=== PATIENT | male | born 1950 | race Two or more races ===

== ENCOUNTER 2016-08-15 13:04 | Observation (INO) | payer SELFPAY ==
[~2016-08-15] VITALS: Ht 177.8 cm; Wt 84.0 kg
[2016-08-15] MEDS ORDERED: fentaNYL PF VIAL 100 MCG/2 ML VIAL IV PRN ×2 (13:30→14:00)
[2016-08-15] MEDS ORDERED: 0.9 % SODIUM CHLORIDE 10 ML DISP.SYRIN. IV PRN (13:30)
[2016-08-15] MEDS ORDERED: IV NORMAL SALINE 1000ML BAG 1,000 ML IV SCH (13:30)
[2016-08-15 13:47] LABS: BASO # 0.1 x10^3/uL (0.0-0.2); BASO % 2 % (0-3); EOS % 1 % (0-3); HEMATOCRIT 44.6 % (39.0-53.0); HEMOGLOBIN 15.5 g/dL (13.0-17.5); LYMPH # 0.5 x10^3/uL (1.0-4.8); LYMPH % 11 % (24-48); MEAN CORPUSCULAR HEMOGLOBIN 32 pg (25-35); MEAN CORPUSCULAR HGB CONC 35 g/dL (31-37); MEAN CORPUSCULAR VOLUME 91 fL (79-100); MONO % 6 % (0-9); NEUT % 80 % (31-73); PLATELET COUNT 164 x10^3/uL (140-400); RED BLOOD COUNT 4.93 x10^6/uL (4.30-5.70); RED CELL DISTRIBUTION WIDTH 13.3 % (11.5-14.5); WHITE BLOOD COUNT 4.3 x10^3/uL (4.0-11.0)
--- NOTE | 2016-08-15 13:47 | PHYS DOC ---
Past Medical History Past Medical History: CVA, GERD, High Cholesterol, Hypertension Additional Past Medical Histor: headaches Past Surgical History: Other Additional Past Surgical Histo: HEAD SX DUE TO A BLEED, hernia Alcohol Use: None Drug Use: None Adult General Chief Complaint Chief Complaint: DIZZY/LIGHT HEADED HPI HPI Patient is a pleasant 66-year-old male with history of hypertension hyperlipidemia reflux who presents with intermittent chest pain dizziness and nausea that shortness of breath for last 3 days. Symptoms began 3 days ago with intermittent chest pain experienced over the left breast with radiation to the back describes as pressure and sharp and stabbing and changed with swallowing water. He had one episode on Sunday it went away with after eating vessels. He again had a little earlier episode just prior to arrival today that made him lightheaded and dizzy. He did not feel short of breath with the symptoms. He was nauseated without vomiting or diarrhea did not have any abdominal pain is focal neurologic deficits weakness in his upper and lower extremities do not have any change in vision. Patient denies any trauma patient denies any recent travel outside the country or anti microbial use he has not had symptoms like this in the past. He felt as all dietary related given the fact that he felt better after eating vegetables and drinking water. Family is concerned that this is a heart issue. Review of Systems Review of Systems Constitutional: Denies fever or chills [] Eyes: Denies change in visual acuity, redness, or eye pain [] HENT: Denies nasal congestion or sore throat [] Respiratory: Denies cough or shortness of breath [] Cardiovascular: No additional information not addressed in HPI [] GI: Denies abdominal pain, but has had some nausea without vomiting or diarrhea : Denies dysuria or hematuria [] Musculoskeletal: Denies back pain or joint pain [] Integument: Denies rash or skin lesions [] Neurologic: Patient has been dizzy with no focal neurologic weakness. Endocrine: Denies polyuria or polydipsia [] Current Medications Current Medications Current Medications Medications (Trade) Dose Ordered Sig/Luci Start Time Stop Time Status Last Admin Dose Admin Acetaminophen (Tylenol) 650 mg PRN Q4HRS PRN 08/15/16 14:00 08/16/16 13:59 Fentanyl Citrate (Fentanyl 2ml Vial) 50 mcg PRN Q1HR PRN 08/15/16 14:00 08/16/16 13:59 Fentanyl Citrate 50 mcg 50 mcg PRN Q15MIN PRN 08/15/16 13:30 08/16/16 13:29 08/15/16 13:43 50 MCG Ondansetron HCl (Zofran) 4 mg PRN Q8HRS PRN 08/15/16 14:00 08/16/16 13:59 Sodium Chloride (Iv Sodium Chloride 0.9% 1000ml Bag) 1,000 ml @ 1,000 mls/hr Q1H 08/15/16 13:30 08/15/16 14:29 DC 08/15/16 13:44 1,000 MLS/HR Sodium Chloride (Normal Saline Flush) 10 ml QSHIFT PRN 08/15/16 13:30 08/15/16 13:46 10 ML Allergies Allergies Allergies Coded Allergies Type Severity Reaction Last Updated Verified No Known Allergies Allergy Unknown 09/20/15 Yes Physical Exam Physical Exam Constitutional: Well developed, well nourished, no acute distress, non-toxic appearance. [] HENT: Normocephalic, atraumatic, bilateral external ears normal, oropharynx moist, no oral exudates, nose normal. [] Eyes: PERRLA, EOMI, conjunctiva normal, no discharge. [] Neck: Normal range of motion, no tenderness, supple, no stridor. [] Cardiovascular:Heart rate regular rhythm, no murmur [] Lungs & Thorax: Bilateral breath sounds clear to auscultation [] Abdomen: Bowel sounds normal, soft, no tenderness, no masses, no pulsatile masses. [] Skin: Warm, dry, no erythema, no rash. [] Back: No tenderness, no CVA tenderness. [] Extremities: No tenderness, no cyanosis, no clubbing, ROM intact, no edema. [] Neurologic: Alert and oriented X 3, normal motor function, normal sensory function, no focal deficits noted. [] Psychologic: Affect normal, judgement normal, mood normal. [] Current Patient Data Vital Signs Vital Signs Date Time Temp Pulse Resp B/P Pulse Ox O2 Delivery O2 Flow Rate FiO2 08/15/16 14:01 87 18 137/81 99 08/15/16 13:20 98.1 Room Air 98.1 Lab Values Laboratory Tests Test 08/15/16 13:30 White Blood Count 4.3x10^3/uL (4.0-11.0) Red Blood Count 4.93x10^6/uL (4.30-5.70) Hemoglobin 15.5g/dL (13.0-17.5) Hematocrit 44.6% (39.0-53.0) Mean Corpuscular Volume 91fL (79-100) Mean Corpuscular Hemoglobin 32pg (25-35) Mean Corpuscular Hemoglobin Concent 35g/dL (31-37) Red Cell Distribution Width 13.3% (11.5-14.5) Platelet Count 164x10^3/uL (140-400) Neutrophils (%) (Auto) 80% (31-73) H Lymphocytes (%) (Auto) 11% (24-48) L Monocytes (%) (Auto) 6% (0-9) Eosinophils (%) (Auto) 1% (0-3) Basophils (%) (Auto) 2% (0-3) Neutrophils # (Auto) 3.5x10^3uL (1.8-7.7) Lymphocytes # (Auto) 0.5x10^3/uL (1.0-4.8) L Monocytes # (Auto) 0.2x10^3/uL (0.0-1.1) Eosinophils # (Auto) 0.0x10^3/uL (0.0-0.7) Basophils # (Auto) 0.1x10^3/uL (0.0-0.2) D-Dimer (Taylor) 0.81ug/mlFEU (0.00-0.50) H Sodium Level 136mmol/L (136-145) Potassium Level 4.3mmol/L (3.5-5.1) Chloride Level 104mmol/L (98-107) Carbon Dioxide Level 27mmol/L (21-32) Anion Gap 5 (6-14) L Blood Urea Nitrogen 14mg/dL (8-26) Creatinine 0.8mg/dL (0.7-1.3) Estimated GFR (Cockcroft-Gault) 96.1 Glucose Level 147mg/dL (70-99) H Calcium Level 8.8mg/dL (8.5-10.1) Magnesium Level 2.1mg/dL (1.8-2.4) Creatine Kinase 151U/L (39-308) Creatine Kinase MB (Mass) 1.7ng/mL (0.0-3.6) Creatine Kinase MB Relative Index 1.1% (0-4) Troponin I Quantitative < 0.017ng/mL (0.000-0.055) SM-Iwc-H-Type Natriuretic Peptide 49pg/mL (0-124) Lipase 136U/L (73-393) Thyroid Stimulating Hormone (TSH) 4.609uIU/mL (0.358-3.74) H Laboratory Tests 08/15/16 13:30 Laboratory Tests 08/15/16 13:30 EKG EKG [EKG timed 1319 p.m. 5 05/18/16 heart rate of 75 [place] interval normal at 146 no QRS or T-wave changes as his elevation consistent with acute coronary event. There is a Q-wave located in lead 3 but is not pathologic as it is only occurring in the one lead.] Radiology/Procedures Radiology/Procedures [Chest x-ray read by me demonstrates no significant widened mediastinum no pericardial effusion no large cardiac silhouette or thick focal infiltrate. Lungs are otherwise well-expanded no evidence of pleural effusion.] Course & Med Decision Making Course & Med Decision Making Pertinent Labs and Imaging studies reviewed. (See chart for details) [I'm concerned with the patient's presentation of chest pain with dizziness she' s never had before beginning 3 days ago given his age and prior history of hypertension hyperlipidemia his heart score risk is greater than 4. Which means his outpatient likelihood for acute coronary event is greater than 5%. Given his lack of evaluation from a prior supervisor contact and service clerks I would advise admission to the hospital and close follow-up. Differential diagnosis includes but not limited to pulmonary asthma, pleural effusion, pneumonia, pericarditis, acute coronary syndrome, mediastinum is, esophagitis, reflux, and] Paged internal medicine for hospitalist evaluation and admission to the hospital at 1:46 PM. He should continue to have episodes of nausea requiring repeated doses Zofran and fluids. By the end he was feeling markedly better reported troponin and EKG unremarkable as well as chest x-ray. Dragon Disclaimer Dragon Disclaimer This electronic medical record was generated, in whole or in part, using a voice recognition dictation system. Departure Departure Impression: Primary Impression: Chest pain Additional Impression: Nausea & vomiting Disposition: 02 TRANSFER [facility] Admitting Physician: Pravin Mckinney Condition: IMPROVED Referrals: [facility] (PCP) Problem Qualifiers DIANA JAQUEZ MD August 15, 2016 13:47
[2016-08-15] MEDS ORDERED: PRAV40TA2 PO (13:48)
[2016-08-15] MEDS ORDERED: CYCL10TA2 PO (13:49)
[2016-08-15] MEDS ORDERED: TRAM50TA PO (13:51)
[2016-08-15] MEDS ORDERED: TERA2CAP3 PO (13:52)
[2016-08-15] MEDS ORDERED: FAMO20TA5 PO (13:52)
[2016-08-15] MEDS ORDERED: AMLO10TA2 PO (13:53)
[2016-08-15] MEDS ORDERED: METO50TA2 PO (13:54)
[2016-08-15] MEDS ORDERED: ONDANSETRON PF 4 MG/2 ML VIAL. IV ONE (14:00)
[2016-08-15] MEDS ORDERED: ACETAMINOPHEN 325 MG TABLET. PO PRN ×2 (14:00→18:45)
[2016-08-15] MEDS ORDERED: ONDANSETRON PF 4 MG/2 ML VIAL. IV PRN ×2 (14:00→18:45)
--- NOTE | 2016-08-15 14:05 | EKG ---
[facility] [address] [place] [address] Test Date: 2016-08-15 Test Time: 13:19:07 Pat Name: ARLEY ERICKSON Department: Room: Gender: M Materials Management Clerk: : 1950 Requested By: DIANA JAQUEZ Order Number: [id number] Reading MD: Tameka Sagastume Measurements Intervals [place] Rate: 75 P: 31 ND: 146 QRS: 3 QRSD: 78 T: 16 QT: 368 QTc: 413 Interpretive Statements SINUS RHYTHM LEFT ATRIAL ABNORMALITY RI6.01 Unconfirmed report No previous ECG available for comparison Electronically Signed On 08-16-2016 20:40:36 CDT by Tameka Sagastume
[2016-08-15 14:09] LABS: MAGNESIUM 2.1 mg/dL (1.8-2.4)
--- NOTE | 2016-08-15 14:11 | RAD ---
Indication chest pain. A single view of the chest was obtained. Comparison is made to an examination 01/18/2008. There is cardiomegaly similar to the previous exam. There is no congestive heart failure. There is no focal infiltrate significant pleural fluid collection or pneumothorax. The bony structures appear grossly intact. A significant change compared to the previous exam is not seen. IMPRESSION: No acute finding. No significant change
[2016-08-15 14:19] LABS: CKMB MASS 1.7 ng/mL (0.0-3.6)
--- NOTE | 2016-08-15 15:50 | PDOC2 ---
MIYA RUCKER [facility] 08/15/16 1549: CARDIAC CONSULT DATE OF CONSULT Date of Consult DATE: 08/15/16 TIME: 15:39 REASON FOR CONSULT Reason for Consult: Chest pain REFERRING PHYSICIAN Referring Physician: Brittny SOURCE Source: Chart review, Patient HISTORY OF PRESENT ILLNESS HISTORY OF PRESENT ILLNESS This is a pleasant 66 yo male admitted for complains of chest pain, and dizziness. Reports that he was working Sunday when he started having symptoms. 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 He was nauseated but no SOA. He started having left chest pressure that went to his back. He also described it got a little better after drinking cold water. In addition to this he also was complaining od dizziness at that time. He is not sure the duration of his symptoms but this did not recur again till again at work today. I talked to his daughter and she told me that he does not complain much. Denies any prior CAD, VTE, and no syncopal episodes. 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 He has HTN, HLP, and preDM. Denies use of ASA. Denies any frequent heartburn or routine NSAID use. Denies any recent long distance travels, leg pain, clotting disorders. Currently he denies any symptoms. PAST MEDICAL HISTORY Cardiovascular: HTN, Hyperlipidemia Pulmonary: No pertinent hx CENTRAL NERVOUS SYSTEM: CVA (ICH 9 yrs ago), Other (brain aneurysm) GI: GERD Heme/Onc: No pertinent hx Hepatobiliary: No pertinent hx Psych: No pertinent hx Musculoskeletal: Osteoarthritis Rheumatologic: No pertinent hx Infectious disease: No pertinent hx ENT: Other ([place]; tinnitus) Renal/: No pertinent hx Endocrine: Diabetes (PRE dm) Dermatology: No pertinent hx PAST SURGICAL HISTORY Past Surgical History: Hernia Repair (right inguinal), Other (craciotomy 9 yrs ago: unknown for brain clipping) FAMILY HISTORY Family History noncontributory to CV SOCIAL HISTORY Smoke: No (quit 9 yrs ago; >20 pk yr) ALCOHOL: occassional Drugs: None Lives: with Family CURRENT MEDICATIONS CURRENT MEDICATIONS Current Medications Medications (Trade) Dose Ordered Sig/Luci Route PRN Reason Start Time Stop Time Status Last Admin Dose Admin Fentanyl Citrate 50 mcg 50 mcg PRN Q15MIN PRN IV PAIN GREATER THAN 3/10 08/15/16 13:30 08/16/16 13:29 5/2/17 13:43 Sodium Chloride (Iv Sodium Chloride 0.9% 1000ml Bag) 1,000 ml @ 1,000 mls/hr Q1H IV 08/15/16 13:30 08/15/16 14:29 DC 08/15/16 13:44 Sodium Chloride (Normal Saline Flush) 10 ml QSHIFT PRN IV AFTER MEDS AND BLOOD DRAWS 08/15/16 13:30 08/15/16 13:46 Ondansetron HCl (Zofran) 4 mg 1X ONCE IV 08/15/16 14:00 08/15/16 14:01 DC 08/15/16 14:00 ALLERGIES ALLERGIES: Coded Allergies: No Known Allergies (Verified Allergy, Unknown, 09/20/15) ROS Review of System 14 point ROS evaluated with pertinent positives noted per HPI PHYSICAL EXAM General: Alert, Oriented X3, Cooperative, No acute distress HEENT: Atraumatic, Mucous membr. moist/pink Lungs: Clear to auscultation, Normal air movement Heart: Regular rate (SR), Normal S1, Normal S2 Abdomen: Soft, No tenderness Extremities: No cyanosis, No edema Skin: No breakdown, No significant lesion Neuro: Normal speech, Sensation intact Psych/Mental Status: Mental status NL, Mood NL MUSCULOSKELETAL: Osteoarthritic changes both hands VITALS VITALS Vital Signs Date Time Temp Pulse Resp B/P Pulse Ox O2 Delivery O2 Flow Rate FiO2 08/15/16 14:01 87 18 137/81 99 08/15/16 13:20 98.1 Room Air 98.1 LABS Lab: Laboratory Tests Test 08/15/16 13:30 White Blood Count 4.3x10^3/uL (4.0-11.0) Red Blood Count 4.93x10^6/uL (4.30-5.70) Hemoglobin 15.5g/dL (13.0-17.5) Hematocrit 44.6% (39.0-53.0) Mean Corpuscular Volume 91fL (79-100) Mean Corpuscular Hemoglobin 32pg (25-35) Mean Corpuscular Hemoglobin Concent 35g/dL (31-37) Red Cell Distribution Width 13.3% (11.5-14.5) Platelet Count 164x10^3/uL (140-400) Neutrophils (%) (Auto) 80% (31-73) Lymphocytes (%) (Auto) 11% (24-48) Monocytes (%) (Auto) 6% (0-9) Eosinophils (%) (Auto) 1% (0-3) Basophils (%) (Auto) 2% (0-3) Neutrophils # (Auto) 3.5x10^3uL (1.8-7.7) Lymphocytes # (Auto) 0.5x10^3/uL (1.0-4.8) Monocytes # (Auto) 0.2x10^3/uL (0.0-1.1) Eosinophils # (Auto) 0.0x10^3/uL (0.0-0.7) Basophils # (Auto) 0.1x10^3/uL (0.0-0.2) D-Dimer (Taylor) 0.81ug/mlFEU (0.00-0.50) Sodium Level 136mmol/L (136-145) Potassium Level 4.3mmol/L (3.5-5.1) Chloride Level 104mmol/L (98-107) Carbon Dioxide Level 27mmol/L (21-32) Anion Gap 5 (6-14) Blood Urea Nitrogen 14mg/dL (8-26) Creatinine 0.8mg/dL (0.7-1.3) Estimated GFR (Cockcroft-Gault) 96.1 Glucose Level 147mg/dL (70-99) Calcium Level 8.8mg/dL (8.5-10.1) Magnesium Level 2.1mg/dL (1.8-2.4) Creatine Kinase 151U/L (39-308) Creatine Kinase MB (Mass) 1.7ng/mL (0.0-3.6) Creatine Kinase MB Relative Index 1.1% (0-4) Troponin I Quantitative < 0.017ng/mL (0.000-0.055) NF-Tsx-S-Type Natriuretic Peptide 49pg/mL (0-124) Lipase 136U/L (73-393) Thyroid Stimulating Hormone (TSH) 4.609uIU/mL (0.358-3.74) ASSESSMENT/PLAN ASSESSMENT/PLAN 1. Chest pain: initial trop normal. EKG SR with very subtle ST depression V4- V6 but with upward deflection otherwise no acute changes. 2. HTN: controlled 3. HLP 4. Subclinical hypothyroidism: TSH 4.6. per PCP 5. DDIMER: 0.81. PE/DVT clinical probability low. Defer to PCP. 6. PreDM 7. Hx of CVA/ICH/brain aneurysm with craniotomy: 9 yrs ago 8. Hx of remote tobaccoism: >20-40 pk yr quit 9 yrs ago 9. GERD: on home H2 ken Recommendations 1. Trend troponin, CMP, lipids in am, A1C. 2. TTE, plan for MPI tomorrow unless significant changes on trop and symptomatology. 3. PPI. 4. COntinue with ASA, home statin and BP meds. Problems: LORENZO EPSTEIN MD 08/16/16 0901: CARDIAC CONSULT ALLERGIES ALLERGIES: Coded Allergies: No Known Allergies (Verified Allergy, Unknown, 09/20/15) ASSESSMENT/PLAN ASSESSMENT/PLAN Patient seen and examined 08/15/16. Agree with HIGH SCHOOL ASSISTANT PRINCIPAL's assessment and plan. Chest pain with atypical features. Myocardial infarction ruled out. 2-D echo showed normal LV function without any wall motion abnormalities. Plan for Lexiscan nuclear stress test to rule out ischemia. Thank you for the consultation. Problems: MIYA RUCKER APRN August 15, 2016 15:49 LORENZO EPSTEIN MD August 16, 2016 09:01
[2016-08-15 16:02] VITALS: BP 146/83
[2016-08-15 16:26] LABS: ALBUMIN 3.9 g/dL (3.4-5.0); CALCIUM 8.7 mg/dL (8.5-10.1); CREATININE 0.8 mg/dL (0.7-1.3); GFR 96.1; POTASSIUM 4.5 mmol/L (3.5-5.1); TOTAL BILIRUBIN 0.5 mg/dL (0.2-1.0); TOTAL PROTEIN 7.7 g/dL (6.4-8.2)
--- NOTE | 2016-08-15 17:07 | CARD ---
APPROVED REPORT EXAM: Two-dimensional and M-mode echocardiogram with Doppler and color Doppler. Other Information Quality : Average Rhythm : NSR INDICATION Chest Pain 2D DIMENSIONS Left Atrium(2D)3.8 (1.6-4.0cm)IVSd1.0 (0.7-1.1cm) Aortic Root(2D)2.5 (2.0-3.7cm)LVDd5.2 (3.9-5.9cm) LVOT Diameter2.0 (1.8-2.4cm)PWd1.0 (0.7-1.1cm) LVDs3.7 (2.5-4.0cm)FS (%) 28.8 % SV72.8 mlLVEF(%)55.1 (>50%) Aortic Valve AoV Peak [place].134.4cm/sAoV VTI30.8cm AO Peak GR.7.2mmHgLVOT VTI 27.05cm AO Mean GR.4mmHg Mitral Valve MV E Zulochhx39.3cm/sMV E Peak Gr.3mmHg MV DECEL [id number] A Unrgctfv74.7cm/s MV E Mean Gr.2mmHgMV XAN29mp E/A Ratio1.0MV A Kdfsfocb950vz MVA (PHT)4.23cm2 TDI Lateral E' P. V10.16cm/sMedial E' P. V10.36cm/s E/Lateral E'8.1E/Medial E'7.9 Tricuspid Valve TR P. [id number]/sRAP [id number] TR Peak Gr.10xmGlJNBP04xnDs LEFT VENTRICLE The left ventricle is normal size. There is normal left ventricular wall thickness. Left ventricle sy stolic function is normal. The Ejection Fraction is 55-60%. There is normal LV segmental wall motion. The left ventricular diastolic function and filling is normal for age. RIGHT VENTRICLE The right ventricle is normal size. The right ventricular systolic function is normal. ATRIA The left atrium size is normal. The right atrium size is normal. The interatrial septum is intact wit h no evidence for an atrial septal defect or patent foramen ovale as noted on 2-D or Doppler imaging. AORTIC VALVE The aortic valve is normal in structure and function. The aortic valve is trileaflet. Doppler and Col or Flow revealed no significant aortic regurgitation. There is no significant aortic valvular stenosi s. MITRAL VALVE The mitral valve is normal in structure and function. There is no mitral valve stenosis. Doppler and Color Flow revealed mild mitral regurgitation. TRICUSPID VALVE The tricuspid valve is normal in structure and function. Doppler and Color Flow revealed mild tricusp id regurgitation. The PA pressure was estimated at 36 mmHg. There is no tricuspid valve stenosis. PULMONIC VALVE The pulmonic valve is not well visualized. Doppler and Color Flow revealed no pulmonic valvular regur gitation. There is no pulmonic valvular stenosis. GREAT VESSELS The aortic root is normal in size. Pulmonary veins not recorded. The IVC is normal in size and collap ses >50% with inspiration. PERICARDIAL EFFUSION There is no evidence of significant pericardial effusion. Critical Notification Critical Value: No <Conclusion> There is normal LV segmental wall motion. Left ventricle systolic function is normal. The Ejection Fraction is 55-60%.
[2016-08-15] MEDS: amLODIPine BESYLATE 10 MG TABLET PO SCH (18:12)
[2016-08-15] MEDS: PANTOPRAZOLE 40 MG TABLET.DR. PO SCH (18:12)
--- NOTE | 2016-08-15 18:32 | PDOC1 ---
History and Physical Past Medical History Cardiovascular: HTN, Hyperlipidemia Pulmonary: No pertinent hx CENTRAL NERVOUS SYSTEM: CVA (ICH 9 yrs ago), Other (brain aneurysm) GI: GERD Heme/Onc: No pertinent hx Hepatobiliary: No pertinent hx Psych: No pertinent hx Rheumatologic: No pertinent hx Infectious disease: No pertinent hx ENT: Other (NAVAJO; tinnitus) Renal/: No pertinent hx Endocrine: Diabetes (PRE dm) Dermatology: No pertinent hx Past Surgical History Past Surgical History: Hernia Repair (right inguinal), Other (craciotomy 9 yrs ago: unknown for brain clipping) Social History Smoke: No (quit 9 yrs ago; >20 pk yr) ALCOHOL: occassional Drugs: None Current Problem List Problem List Problems Medical Problems: (1) Chest pain Status: Acute (2) Nausea & vomiting Status: Acute Current Medications Current Medications Current Medications Medications (Trade) Dose Ordered Sig/Luci Start Time Stop Time Status Last Admin Dose Admin Acetaminophen (Tylenol) 650 mg PRN Q4HRS PRN 08/15/16 14:00 08/16/16 13:59 Amlodipine Besylate (Norvasc) 10 mg DAILY 08/15/16 17:00 08/15/16 18:12 10 MG Aspirin (Ecotrin) 81 mg [id number] 08/16/16 08:00 Atorvastatin Calcium (Lipitor) 10 mg QHS 08/15/16 21:00 Fentanyl Citrate (Fentanyl 2ml Vial) 50 mcg PRN Q1HR PRN 08/15/16 14:00 08/16/16 13:59 Fentanyl Citrate 50 mcg 50 mcg PRN Q15MIN PRN 08/15/16 13:30 08/15/16 16:20 DC 08/15/16 13:43 50 MCG Metoprolol Tartrate (Lopressor) 50 mg BID 08/15/16 21:00 Ondansetron HCl (Zofran) 4 mg PRN Q8HRS PRN 08/15/16 14:00 08/16/16 13:59 Pantoprazole Sodium (Protonix) 40 mg DAILYAC 08/15/16 17:00 08/15/16 18:12 40 MG Sodium Chloride (Iv Sodium Chloride 0.9% 1000ml Bag) 1,000 ml @ 1,000 mls/hr Q1H 08/15/16 13:30 08/15/16 14:29 DC 08/15/16 13:44 1,000 MLS/HR Sodium Chloride (Normal Saline Flush) 10 ml QSHIFT PRN 08/15/16 13:30 08/15/16 13:46 10 ML Allergies Allergies Allergies Coded Allergies Type Severity Reaction Last Updated Verified No Known Allergies Allergy Unknown 09/20/15 Yes ROS Review of System CONSTITUTIONAL: No fever or chills EYES: No recent changes SKIN: No rash or itching CARDIOVASCULAR: Chest pain, Dizziness. RESPIRATORY: No SOB or cough GASTROINTESTINAL: No nausea, vomiting or abdominal pain NEUROLOGICAL: No headaches or weakness ENDOCRINE: No cold or heat intolerance GENITOURINARY: No urgency or frequency of urination MUSCULOSKELETAL: No back pain or joint pain LYMPHATICS: No enlarged lymph nodes PSYCHIATRIC: No anxiety or depression Physical Exam Physical Exam GEN.: No apparent distress. Alert and oriented. HEENT: Head is normocephalic, atraumatic NECK: Supple. no JVD LUNGS: Clear to auscultation. normal airflow HEART: RRR, S1, S2 present. Peripheral pulses intact ABDOMEN: Soft, nontender. Positive bowel sounds. EXTREMITIES: Without any cyanosis. no edema NEUROLOGIC: Normal speech, normal tone PSYCHIATRIC: Normal affect, normal mood. SKIN: dry, Vitals Vitals Vital Signs Date Time Temp Pulse Resp B/P Pulse Ox O2 Delivery O2 Flow Rate FiO2 08/15/16 18:12 74 146/83 08/15/16 16:02 97.5 18 93 Room Air 97.5 Labs Labs Laboratory Tests Test 08/15/16 13:30 White Blood Count 4.3x10^3/uL (4.0-11.0) Red Blood Count 4.93x10^6/uL (4.30-5.70) Hemoglobin 15.5g/dL (13.0-17.5) Hematocrit 44.6% (39.0-53.0) Mean Corpuscular Volume 91fL (79-100) Mean Corpuscular Hemoglobin 32pg (25-35) Mean Corpuscular Hemoglobin Concent 35g/dL (31-37) Red Cell Distribution Width 13.3% (11.5-14.5) Platelet Count 164x10^3/uL (140-400) Neutrophils (%) (Auto) 80% (31-73) Lymphocytes (%) (Auto) 11% (24-48) Monocytes (%) (Auto) 6% (0-9) Eosinophils (%) (Auto) 1% (0-3) Basophils (%) (Auto) 2% (0-3) Neutrophils # (Auto) 3.5x10^3uL (1.8-7.7) Lymphocytes # (Auto) 0.5x10^3/uL (1.0-4.8) Monocytes # (Auto) 0.2x10^3/uL (0.0-1.1) Eosinophils # (Auto) 0.0x10^3/uL (0.0-0.7) Basophils # (Auto) 0.1x10^3/uL (0.0-0.2) D-Dimer (Taylor) 0.81ug/mlFEU (0.00-0.50) Sodium Level 138mmol/L (136-145) Potassium Level 4.5mmol/L (3.5-5.1) Chloride Level 104mmol/L (98-107) Carbon Dioxide Level 24mmol/L (21-32) Anion Gap 10 (6-14) Blood Urea Nitrogen 14mg/dL (8-26) Creatinine 0.8mg/dL (0.7-1.3) Estimated GFR (Cockcroft-Gault) 96.1 BUN/Creatinine Ratio 18 (6-20) Glucose Level 141mg/dL (70-99) Calcium Level 8.7mg/dL (8.5-10.1) Magnesium Level 2.1mg/dL (1.8-2.4) Total Bilirubin 0.5mg/dL (0.2-1.0) Aspartate Amino Transf (AST/SGOT) 27U/L (15-37) Alanine Aminotransferase (ALT/SGPT) 27U/L (16-63) Alkaline Phosphatase 56U/L (46-116) Creatine Kinase 151U/L (39-308) Creatine Kinase MB (Mass) 1.7ng/mL (0.0-3.6) Creatine Kinase MB Relative Index 1.1% (0-4) Troponin I Quantitative < 0.017ng/mL (0.000-0.055) MI-Zyf-I-Type Natriuretic Peptide 49pg/mL (0-124) Total Protein 7.7g/dL (6.4-8.2) Albumin 3.9g/dL (3.4-5.0) Albumin/Globulin Ratio 1.0 (1.0-1.7) Lipase 136U/L (73-393) Thyroid Stimulating Hormone (TSH) 4.609uIU/mL (0.358-3.74) Laboratory Tests Test 08/15/16 13:30 White Blood Count 4.3x10^3/uL (4.0-11.0) Red Blood Count 4.93x10^6/uL (4.30-5.70) Hemoglobin 15.5g/dL (13.0-17.5) Hematocrit 44.6% (39.0-53.0) Mean Corpuscular Volume 91fL (79-100) Mean Corpuscular Hemoglobin 32pg (25-35) Mean Corpuscular Hemoglobin Concent 35g/dL (31-37) Red Cell Distribution Width 13.3% (11.5-14.5) Platelet Count 164x10^3/uL (140-400) Neutrophils (%) (Auto) 80% (31-73) Lymphocytes (%) (Auto) 11% (24-48) Monocytes (%) (Auto) 6% (0-9) Eosinophils (%) (Auto) 1% (0-3) Basophils (%) (Auto) 2% (0-3) Neutrophils # (Auto) 3.5x10^3uL (1.8-7.7) Lymphocytes # (Auto) 0.5x10^3/uL (1.0-4.8) Monocytes # (Auto) 0.2x10^3/uL (0.0-1.1) Eosinophils # (Auto) 0.0x10^3/uL (0.0-0.7) Basophils # (Auto) 0.1x10^3/uL (0.0-0.2) D-Dimer (Taylor) 0.81ug/mlFEU (0.00-0.50) Sodium Level 138mmol/L (136-145) Potassium Level 4.5mmol/L (3.5-5.1) Chloride Level 104mmol/L (98-107) Carbon Dioxide Level 24mmol/L (21-32) Anion Gap 10 (6-14) Blood Urea Nitrogen 14mg/dL (8-26) Creatinine 0.8mg/dL (0.7-1.3) Estimated GFR (Cockcroft-Gault) 96.1 BUN/Creatinine Ratio 18 (6-20) Glucose Level 141mg/dL (70-99) Calcium Level 8.7mg/dL (8.5-10.1) Magnesium Level 2.1mg/dL (1.8-2.4) Total Bilirubin 0.5mg/dL (0.2-1.0) Aspartate Amino Transf (AST/SGOT) 27U/L (15-37) Alanine Aminotransferase (ALT/SGPT) 27U/L (16-63) Alkaline Phosphatase 56U/L (46-116) Creatine Kinase 151U/L (39-308) Creatine Kinase MB (Mass) 1.7ng/mL (0.0-3.6) Creatine Kinase MB Relative Index 1.1% (0-4) Troponin I Quantitative < 0.017ng/mL (0.000-0.055) AL-Jnc-Y-Type Natriuretic Peptide 49pg/mL (0-124) Total Protein 7.7g/dL (6.4-8.2) Albumin 3.9g/dL (3.4-5.0) Albumin/Globulin Ratio 1.0 (1.0-1.7) Lipase 136U/L (73-393) Thyroid Stimulating Hormone (TSH) 4.609uIU/mL (0.358-3.74) VTE Prophylaxis Ordered VTE Prophylaxis Devices: Yes VTE Pharmacological Prophylaxi: Yes JOEL MIKE MD August 15, 2016 18:32
[2016-08-15] MEDS ORDERED: ALBUTEROL SULFATE 2.5 MG/3 ML NEBU. NEB PRN (18:45)
[2016-08-15] MEDS ORDERED: HYDROcodone/APAP 5/325MG 1 TAB TABLET PO PRN (18:45)
[2016-08-15] MEDS ORDERED: hydrALAZINE 20 MG/ML VIAL. IVP PRN (18:45)
[2016-08-15] MEDS ORDERED: traMADol 50 MG TABLET PO PRN (18:45)
[2016-08-15 19:43] VITALS: BP 138/77
[2016-08-15] MEDS: CYCLOBENZAPRINE 10 MG TABLET. PO SCH (20:29)
[2016-08-15] MEDS: TERAZOSIN 1 MG CAPSULE. PO SCH (20:29)
[2016-08-15] MEDS: METOPROLOL TART IMMED RELEASE 50 MG TABLET. PO SCH (20:29)
[2016-08-15] MEDS: PRAVASTATIN 40MG PO SCH (20:31)
[2016-08-15] MEDS ORDERED: ATORVASTATIN CALCIUM 10 MG TABLET. PO SCH (21:00)
--- NOTE | 2016-08-15 21:13 | HP ---
ADMIT DATE: 08/15/2016 CHIEF COMPLAINT: Dizziness. HISTORY OF PRESENT ILLNESS: A 66-year-old male patient with prior history of hemorrhagic CVA, GERD, hypertension, hyperlipidemia, presented to the ER with intermittent chest pain, dizziness. Symptoms started a few days ago; however, symptoms resolved. He described it as a chest pain located at the left side, radiation to the back and described it as pressure, associated with some nausea and mouth dry feeling refilling he denies any vomiting or sweating or prior history of coronary heart disease. 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 PAST MEDICAL HISTORY: CVA, GERD, hyperlipidemia, hypertension and headaches. PAST SURGICAL HISTORY: Had surgery due to bleed and hernia. PERSONAL HISTORY: No smoking, no alcohol, no drug abuse. FAMILY HISTORY: Unknown. REVIEW OF SYSTEMS: CONSTITUTIONAL: No fever or chills. EYES: No recent vision changes. SKIN: No rash or itching. CARDIOVASCULAR: No chest pain, syncope, palpitations or edema. RESPIRATORY: No shortness of breath, cough. GASTROINTESTINAL: No nausea, vomiting, diarrhea or abdominal pain. NEUROLOGICAL: No headache, paralysis. ENDOCRINOLOGIC: No cold or heat intolerance. GENITOURINARY: No burning with urination, no urgency. MUSCULOSKELETAL: No back pain or joint pain. LYMPHATICS: No enlarged nodes. PSYCHIATRIC: No anxiety or depression. PHYSICAL EXAM: GENERAL: No apparent distress. HEENT: Head normocephalic, atraumatic. NECK: Supple. LUNGS: Clear to auscultation. HEART: Regular rate and rhythm; S1, S2 present; pulses intact. ABDOMEN: Soft and positive bowel sounds. EXTREMITIES: No cyanosis or edema. NEUROLOGIC: Normal speech and normal tone; alert and oriented. PSYCHIATRIC: Normal affect, normal mood. SKIN: No ulceration. LABORATORY DATA: CBC within normal limits. Chemistry within normal limits except for TSH is 4.6 and first set of troponin 0.017. Coagulation panel, D-dimer is 0.81. IMAGING STUDIES: Chest x-ray, no acute findings seen. ASSESSMENT AND PLAN: 1. Chest pain, atypical in nature. EKG showed some ST depressions in the lateral leads. Continue to monitor troponins and Cardiology has been consulted. We will check his lipid panel and free T4. 2. Hypertension is well controlled. Continue home regimen. 3. Hyperlipidemia. 4. Subclinical hypothyroidism. I will check T4. 5. Mild elevation of D-dimer. I will get a CTA of the chest to rule out PE and lower extremity Doppler. 6. Diabetes mellitus. Monitor blood sugars and if blood sugar is more than 200, I will try sliding scale insulin. 7. Awaiting HbA1c results. 8. Gastroesophageal reflux disease. Continue home medications. 9. Telemetry. JOEL MIKE MD DR: SWATI/maame JOB#: [id number] / [id number] LASHELL
[2016-08-15 23:33] VITALS: BP 103/70
[2016-08-16 02:53] VITALS: BP 121/74
[2016-08-16 04:21] LABS: BASO # 0.1 x10^3/uL (0.0-0.2); BASO % 1 % (0-3); EOS % 3 % (0-3); HEMATOCRIT 45.1 % (39.0-53.0); LYMPH # 1.2 x10^3/uL (1.0-4.8); LYMPH % 22 % (24-48); MEAN CORPUSCULAR HEMOGLOBIN 31 pg (25-35); MEAN CORPUSCULAR HGB CONC 33 g/dL (31-37); MEAN CORPUSCULAR VOLUME 93 fL (79-100); MONO % 10 % (0-9); NEUT % 64 % (31-73); PLATELET COUNT 154 x10^3/uL (140-400); RED BLOOD COUNT 4.86 x10^6/uL (4.30-5.70); RED CELL DISTRIBUTION WIDTH 13.6 % (11.5-14.5); WHITE BLOOD COUNT 5.3 x10^3/uL (4.0-11.0)
[2016-08-16 04:32] LABS: CALCIUM 8.3 mg/dL (8.5-10.1); CREATININE 0.9 mg/dL (0.7-1.3); GFR 83.9; POTASSIUM 3.9 mmol/L (3.5-5.1)
--- NOTE | 2016-08-16 04:32 | ACF ---
Admission Forms Criteria CHEST PAIN Clinical Indications for Admission to Inpatient Care (Place 'X' for any and all applicable criteria): Admission is indicated for chest pain and ANY ONE of the following(1)(2)(3)(4)(5 ): [ ]I. Angina with acute coronary syndrome (Also use Myocardial Infarction or Angina guideline) [ ]II. Hemodynamic instability [ ]III. Angina needing acute intervention as indicated by ALL of the following( 11)(12): [ ]a) Unstable angina is present as indicated by angina that is ANY ONE of the following: [ ]i) New onset [ ]ii) Nocturnal [ ]iii) Prolonged at rest [ ]iv) Progressive [ ]b) Angina warrants acute intervention as indicated by ANY ONE of the following: [ ]i) Recurrent angina (e.g, not responding as previously to treatment) [ ]ii) Angina at rest or with low-level activities despite initial medical therapy [ ]iii) New or presumably new ST-segment depression on ECG [ ]iv) Signs or symptoms of heart failure (eg, dyspnea, pulmonary edema) [ ]v) New or worsening mitral regurgitation [ ]vi) Hemodynamic instability [ ]vii) Dangerous arrhythmia (eg, sustained ventricular tachycardia) [ ]viii) History of percutaneous coronary intervention within 6 months [ ]ix) History of coronary artery bypass graft surgery [ ]x) DMITRIY risk score of 2 or greater[A] [ ]xi) History of Diabetes(14) [ ]xii) High-risk cardiac ischemia findings on noninvasive testing (e.g, echocardiogram, treadmill testing, nuclear scan) [ ]xiii) Chronic renal insufficiency (ie, estimated GFR less than 60 mL/min/1.732m) [ ]xiv) Left ventricular ejection fraction less than 40% [ ]IV. Evidence of NC (eg, cardiac biomarkers positive, ST-segment elevation on ECG) also use Myocardial Infarction Criteria Form. [ ]V. Pulmonary edema [ ]. Respiratory distress [ ]VII. Chest pain indicative of serious diagnosis other than coronary artery disease (eg, aortic dissection) [ ]VIII. Contraindications and/or Inappropriate clinical situations for Observational Care in patients with Chest Pain, when ANY ONE of the following is required: [ ]a) Patient with risk factor for pulmonary embolism, acute coronary syndrome and myocardial infarction (18) [ ]b) Patient with Pulmonary embolism require an average LOS of 4.3 days, therefore emergency department observation management is inappropriate 18,23 [ ]c) Painful condition/s in the elderly, have the highest rate of recidivism after emergency department observation management (10.8%) 20,21,22 [ ]d) Elevated cardiac biomarker requires intensive and exhaustive care (19) [X]IX. General contraindications and/or Inappropriate clinical situations for Observational Care in patients with Chest Pain, when ANY ONE of the following is required: [X]a) Prediction of prolongation of LOS based on ANY ONE of the following may be considered as a contraindication for observational care 2, 3, 4, 5, 6, 7, 8, 9, 10, 11 [ ]i) Age > 65 yrs. [ ]ii) Patient arriving by ambulance [ ]iii) Patient with high acuity [ ]iv) Patient requiring vital sign monitoring [X]v) Patient on IV medication [ ]b) Systolic blood pressures 180mmHg 3,12 [ ]c) Patient with altered mental status including delirium and other alteration of consciousness, (3) [ ]d) Patient whose discharge disposition will be to a [facility] home or rehabilitation home should not be managed in Emergency Department Observation Unit. CMS rule requires 3 days hospital stay before such placement. 3,13 [ ]e) Patient with failure to thrive due to broad array of etiologies 3,16,17 [ ]f) Inability to ambulate 3,14 Extended stay beyond goal length of stay may be needed for (1)(28): [ ]a) Specific condition diagnosed after evaluation (eg, pulmonary embolism, aortic dissection) [ ]b) Unstable angina [ ]c) Continued suspicion of acute coronary syndrome with inability to complete needed cardiac evaluation (eg, patient clinically unable to undergo stress testing) [ ]d) Myocardial infarction (Contents from ANGINA and CHEST PAIN clinical indications for admission to inpatient care have been integrated in this form) The original [facility] content created by [employer] has been revised. The portions of the content which have been revised are identified through the use of italic text or in bold, and [facility] has neither reviewed nor approved the modified material. All other unmodified content is copyright [facility]. Please see references footnoted in the original [facility] edition 2016 Admission Criteria Met?: Yes LAN MCLEAN August 16, 2016 04:32
[2016-08-16 04:40] LABS: CHOLESTEROL/HDL RATIO 3.3
[2016-08-16] MEDS ORDERED: CONTRAST GIVEN MC PRN (06:30)
[2016-08-16 07:00] VITALS: BP 129/70
[2016-08-16] MEDS ORDERED: IOHEXOL 300 MG/ML 75 ML VIAL IV ONE (07:00)
[2016-08-16] MEDS ORDERED: REGADENOSON 0.4 MG/5 ML DISP.SYRIN. IV ONE (08:00)
--- NOTE | 2016-08-16 09:47 | PDOC ---
MIYA RUCKER HR GENERALIST 08/16/16 0947: CARDIO Progress Notes Date and Time Date of Service 08/16/2016 Time of Evaluation 1400 Subjective Subjective: No Chest Pain, No shortness of breath, No Palpitations, No Dizziness Vitals Vitals Vital Signs Date Time Temp Pulse Resp B/P Pulse Ox O2 Delivery O2 Flow Rate FiO2 08/16/16 07:00 69 16 129/70 97 Room Air 08/16/16 02:53 98.1 98.1 Weight Weight [ ] Input and Output Intake and Output Intake and Output 08/16/16 07:00 Intake Total 180 ml Balance 180 ml Intake Oral 180 ml # Voids 2 Laboratory Labs Laboratory Tests Test 08/15/16 13:30 08/15/16 19:45 08/16/16 02:15 White Blood Count 4.3x10^3/uL (4.0-11.0) 5.3x10^3/uL (4.0-11.0) Red Blood Count 4.93x10^6/uL (4.30-5.70) 4.86x10^6/uL (4.30-5.70) Hemoglobin 15.5g/dL (13.0-17.5) 15.0g/dL (13.0-17.5) Hematocrit 44.6% (39.0-53.0) 45.1% (39.0-53.0) Mean Corpuscular Volume 91fL (79-100) 93fL (79-100) Mean Corpuscular Hemoglobin 32pg (25-35) 31pg (25-35) Mean Corpuscular Hemoglobin Concent 35g/dL (31-37) 33g/dL (31-37) Red Cell Distribution Width 13.3% (11.5-14.5) 13.6% (11.5-14.5) Platelet Count 164x10^3/uL (140-400) 154x10^3/uL (140-400) Neutrophils (%) (Auto) 80% (31-73) 64% (31-73) Lymphocytes (%) (Auto) 11% (24-48) 22% (24-48) Monocytes (%) (Auto) 6% (0-9) 10% (0-9) Eosinophils (%) (Auto) 1% (0-3) 3% (0-3) Basophils (%) (Auto) 2% (0-3) 1% (0-3) Neutrophils # (Auto) 3.5x10^3uL (1.8-7.7) 3.4x10^3uL (1.8-7.7) Lymphocytes # (Auto) 0.5x10^3/uL (1.0-4.8) 1.2x10^3/uL (1.0-4.8) Monocytes # (Auto) 0.2x10^3/uL (0.0-1.1) 0.5x10^3/uL (0.0-1.1) Eosinophils # (Auto) 0.0x10^3/uL (0.0-0.7) 0.2x10^3/uL (0.0-0.7) Basophils # (Auto) 0.1x10^3/uL (0.0-0.2) 0.1x10^3/uL (0.0-0.2) D-Dimer (Taylor) 0.81ug/mlFEU (0.00-0.50) Sodium Level 138mmol/L (136-145) 140mmol/L (136-145) Potassium Level 4.5mmol/L (3.5-5.1) 3.9mmol/L (3.5-5.1) Chloride Level 104mmol/L (98-107) 106mmol/L (98-107) Carbon Dioxide Level 24mmol/L (21-32) 26mmol/L (21-32) Anion Gap 10 (6-14) 8 (6-14) Blood Urea Nitrogen 14mg/dL (8-26) 12mg/dL (8-26) Creatinine 0.8mg/dL (0.7-1.3) 0.9mg/dL (0.7-1.3) Estimated GFR (Cockcroft-Gault) 96.1 83.9 BUN/Creatinine Ratio 18 (6-20) Glucose Level 141mg/dL (70-99) 93mg/dL (70-99) Hemoglobin A1c 5.5% (4.8-5.6) Calcium Level 8.7mg/dL (8.5-10.1) 8.3mg/dL (8.5-10.1) Magnesium Level 2.1mg/dL (1.8-2.4) Total Bilirubin 0.5mg/dL (0.2-1.0) Aspartate Amino Transf (AST/SGOT) 27U/L (15-37) Alanine Aminotransferase (ALT/SGPT) 27U/L (16-63) Alkaline Phosphatase 56U/L (46-116) Creatine Kinase 151U/L (39-308) Creatine Kinase MB (Mass) 1.7ng/mL (0.0-3.6) Creatine Kinase MB Relative Index 1.1% (0-4) Troponin I Quantitative < 0.017ng/mL (0.000-0.055) < 0.017ng/mL (0.000-0.055) < 0.017ng/mL (0.000-0.055) CD-Uou-A-Type Natriuretic Peptide 49pg/mL (0-124) Total Protein 7.7g/dL (6.4-8.2) Albumin 3.9g/dL (3.4-5.0) Albumin/Globulin Ratio 1.0 (1.0-1.7) Lipase 136U/L (73-393) Thyroid Stimulating Hormone (TSH) 4.609uIU/mL (0.358-3.74) Free Thyroxine 0.89ng/dL (0.76-1.46) Triglycerides Level 64mg/dL (0-150) Cholesterol Level 125mg/dL (0-200) LDL Cholesterol, Calculated 74mg/dL (0-100) VLDL Cholesterol, Calculated 13mg/dL (0-40) Non-HDL Cholesterol Calculated 87mg/dL (0-129) HDL Cholesterol 38mg/dL (40-60) Cholesterol/HDL Ratio 3.3 Physical Exam HEENT: Neck Supple W Full Motion Chest: Symmetric LUNGS: Clear to Auscultation Heart: S1S2, RRR (SR without significant ectopies ) Abdomen: Soft N/T Extremities: No Edema, No Calf Tenderness Neurology: alert, oriented Assessment Assessment 1. Chest pain: TTE with no WMA and has normal EF. Unremarkable MPI. Likely GI but aneurysm could be contributing as well. 2. HTN: controlled 3. HLP: controlled 4. AAA: via CTA. no PE. 4.7 cm in width, 5.2 cm in greatest AP dimension and 6.3 cm in craniocaudad extent. 3. Hx of brain aneurysm/ICH/CVA/craniotomy: 9 yrs ago Recommendations 1. Continue with home regimen, BB, amlodipine, PPI, ASA 2. Vascular consult per PCP LORENZO EPSTEIN MD 08/17/16 0858: CARDIO Progress Notes Assessment Assessment Patient seen and examined 08/16/16. Agree with [employer] ADMINISTRATOR's assessment and plan. 2-D echo showed normal LV function without any wall motion abnormalities. Lexiscan nuclear stress test did not show any ischemia. Chest pain noncardiac and most probably GI etiology. Okay for discharge from cardiac standpoint. MIYA RUCKER APRN August 16, 2016 09:47 LORENZO EPSTEIN MD August 17, 2016 08:58
--- NOTE | 2016-08-16 10:33 | RAD ---
CTA of the chest with contrast, 08/16/2016: History: Chest pain, elevated d-dimer Multidetector CT imaging was performed following an IV bolus injection of iodinated contrast material. Multiplanar reconstructions were produced including coronal MIP images. The main and lobar pulmonary arteries are well opacified and no filling defects are seen to suggest pulmonary emboli. No filling defects are seen in the segmental pulmonary arteries, although some of those in the lower lobes are poorly delineated due to artifacts. There is moderate calcific plaquing of the thoracic aorta and its branches. A few scattered coronary artery calcifications are present. The heart is mildly enlarged. No mediastinal adenopathy is seen. Evaluation of the lung parenchyma is partially compromised by motion artifacts. There is mild dependent atelectasis and/or scarring in the lungs. No pulmonary mass or dense consolidation is seen. There is no evidence of pleural fluid. There is an aneurysm of the aorta beginning near the level the diaphragm and extending into the upper abdomen. It measures 4.7 cm in width, 5.2 cm in greatest AP dimension and 6.3 cm in craniocaudad extent. There is considerable calcification of its kilgore. There is moderate intraluminal thrombus posteriorly. IMPRESSION: 1. No CT evidence of central pulmonary emboli. 2. Aortic atherosclerosis with a moderate-sized aortic aneurysm at the level of the diaphragmatic hiatus extending into the upper abdomen. 3. Coronary artery calcifications. PQRS Compliance Statement: One or more of the following individualized dose reduction techniques were utilized for this examination: 1. Automated exposure control 2. Adjustment of the mA and/or kV according to patient size 3. Use of iterative reconstruction technique
[2016-08-16 11:30] VITALS: BP 149/71
[2016-08-16] MEDS: PANTOPRAZOLE 40 MG TABLET.DR. PO SCH (11:30)
[2016-08-16] MEDS: FAMOTIDINE 20 MG TABLET. PO SCH (11:31)
[2016-08-16] MEDS: amLODIPine BESYLATE 10 MG TABLET PO SCH (11:34)
[2016-08-16] MEDS: CYCLOBENZAPRINE 10 MG TABLET. PO SCH ×2 (11:35→21:03)
[2016-08-16] MEDS: ASPIRIN ENTERIC COATED 81 MG TABLET.DR. PO SCH (11:35)
[2016-08-16] MEDS: METOPROLOL TART IMMED RELEASE 50 MG TABLET. PO SCH ×2 (11:36→21:04)
[2016-08-16] MEDS ORDERED: ASPI81TA9 PO (12:17)
[2016-08-16] MEDS ORDERED: PANT40TA5 PO (12:17)
--- NOTE | 2016-08-16 13:13 | RAD ---
APPROVED REPORT Test Type: Pharmacological Stress Nurse/Tech: Angela Guerrero RN Test Indications: chest pain, dizziness Cardiac History: see ehr Medications: see ehr Medical History: see ehr Resting ECG: SR Resting Heart Rate: 66 bpm Resting Blood Pressure: 125/74mmHg Pretest Chest Pain: None Nurse/Tech Notes Lungs CTA, S1, S2 Consent: The procedure was explained to the patient in lay terms. Informed consent was witnessed. Jamaal eout was entered into [facility]. History and Stress Test performed by Michael AlonzoNJohnnie Pharm. Details Pharmacologic stress testing was performed using 0.4mg per 5ml of regadenoson given intravenously ove r 7-10 seconds. Stress Symptoms No chest pain or symptoms. POST EXERCISE Reason for Termination: Infusion complete Max HR: 103 bpm Max Blood Pressure: 129/68mmHg Blood Pressure response to exercise: Normal blood pressure response during stress. Chest Pain: No. Arrhythmia: No. ST Change: No. INTERPRETATION Stress EKG Conclusion: Baseline EKG showed sinus rhythm. No ischemic changes at peak stress. No arr hythmias. Imaging Protocol IMAGE PROTOCOL: Rest Tc-99m/stress Tc-99m 1 day Rest: Stress: Viability: Radiopharm.Tc99m [id number] Sestamibi [id number] 33mCi Duration 15min. 10min. Img Date 08/16/2016 08/16/2016 Inj-Img [id number]. 60min. Rest Admin Site:IV - Left AntecubitalAdministrator:Hima Bhagat RT (R)(N) Stress Admin Site: IV - Left AntecubitalAdministrator: Zelda Majano RT (R)(N) STRESS DATA End Diast. Vol.69.0mlAv. Heart Rate74.0bpm End Syst. Vol.12.0mlCO Index BSA0.0L/min Myocardial Lalt426.0gEject. Monkihrq60.0% Stress Rates Pk. Fill Rate4.34EDV/secLVtime Pk. Fill 236.97msec Pk. Empty Rate5.22ESV/secLVtime Pk. Fsxja905.34msec 04/18 Pk. Fill1.13EDV/sec Stress Scores Regional WT0.00Summed WT1.00 Regional WM0.00Summed WM0.00 Study quality was good. Left Ventricular size was Normal at Rest and Stress. Lung uptake was Normal. Left Ventricular ejection fraction is 83%. The rest and stress images show normal perfusion, normal contraction and thickening. LV Perf. Quant 17 Seg. SSS1.00 17 Seg. SRS2.00 17 Seg. SDS0.00 Stress Defect Extent (% LAD)0.00Rest Defect Extent (% LAD)0.00Rev. Defect Extent (% LAD)0.00 Stress Defect Extent (% LCX) 12.50Rest Defect Extent (% LCX)20.00Rev. Defect Extent (% LCX)0.00 Stress Defect Extent (% RCA)0.00Rest Defect Extent (% RCA)0.00Rev. Defect Extent (% RCA)0.00 Stress Defect Extent (% RONNY)2.20Rest Defect Extent (% RONNY)3.50Rev. Defect Extent (% RONNY)0.00 Conclusion 1. Regadenoson cardioisotope stress test did not show any evidence of ischemia or infarct. 2. Normal left ventricular systolic function with ejection fraction calculated at 83%. 3. Low risk for cardiac events.
[2016-08-16 15:00] VITALS: BP 137/70
--- NOTE | 2016-08-16 18:38 | PDOC2 ---
CONSULT Date of Consult Date of Consult DATE: 08/16/16 TIME: 18:21 Reason for Consult Reason for Consult: Descending thoracic aortic aneurysm Referring Physician Referring Physician: Dr. Mckinney Identification/Chief Complaint Chief Complaint left chest pain Source Source: Patient History of Present Illness Reason for Visit: Mr. Moore is a 66 y/o male with HTN, HLD, GERD that presented to the ED with intermittent left chest pain and dizziness. The chest pain began 3 days ago and is intermittent that is not associated with any movement or exertion. The pain radiates from the left chest to around the back. He denies any chest pain with activity, and does not have any cardiac history. He does not have any visual changes, focal weakness, sensory changes, speech changes, or loss of balance. He does have a history of acid reflux, but does not complain of any pain with eating. He denies any trauma. He denies any symptoms of claudication or foot ulcers. He denies any family history of aneurysm. 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 Past Medical History Cardiovascular: HTN, Hyperlipidemia Pulmonary: No pertinent hx CENTRAL NERVOUS SYSTEM: CVA ([facility] 9 yrs ago), Other (brain aneurysm) GI: GERD Heme/Onc: No pertinent hx Hepatobiliary: No pertinent hx Psych: No pertinent hx Musculoskeletal: Osteoarthritis Rheumatologic: No pertinent hx Infectious disease: No pertinent hx ENT: Other ([place]; tinnitus) Renal/: No pertinent hx Endocrine: Diabetes (PRE dm) Dermatology: No pertinent hx Past Surgical History Past Surgical History: Hernia Repair (right inguinal), Other (craciotomy 9 yrs ago: unknown for brain clipping) Social History No (quit 9 yrs ago; >20 pk yr) ALCOHOL: occassional Drugs: None Lives: with Family Current Problem List Problem List Problems Medical Problems: (1) Chest pain Status: Acute (2) Nausea & vomiting Status: Acute Current Medications Current Medications Current Medications Fentanyl Citrate 50 mcg 50 mcg PRN Q15MIN PRN IV PAIN GREATER THAN 3/10 Last administered on 08/15/16 13:43; Start 08/15/16 at 13:30; Stop 08/15/16 at 16:20; Status DC Sodium Chloride (Iv Sodium Chloride 0.9% 1000ml Bag) 1,000 ml @ 1,000 mls/hr Q1H IV Last administered on 08/15/16 13:44; Start 08/15/16 at 13:30; Stop at 14:29; Status DC Sodium Chloride (Normal Saline Flush) 10 ml QSHIFT PRN IV AFTER MEDS AND BLOOD DRAWS Last administered on 08/15/16 13:46; Start 08/15/16 at 13:30 Ondansetron HCl (Zofran) 4 mg 1X ONCE IV Last administered on 08/15/16 14:00; Start 08/15/16 at 14:00; Stop 08/15/16 at 14:01; Status DC Ondansetron HCl (Zofran) 4 mg PRN Q8HRS PRN IV NAUSEA/VOMITING; Start 08/15/16 at 14:00; Stop 08/16/16 at 13:59; Status DC Fentanyl Citrate (Fentanyl 2ml Vial) 50 mcg PRN Q1HR PRN IV PAIN; Start at 14:00; Stop 08/16/16 at 13:59; Status DC Acetaminophen (Tylenol) 650 mg PRN Q4HRS PRN PO FEVER; Start 08/15/16 at 14:00; Stop 08/16/16 at 13:59; Status DC Amlodipine Besylate (Norvasc) 10 mg DAILY PO Last administered on 08/16/16 11: 34; Start 08/15/16 at 17:00 Metoprolol Tartrate (Lopressor) 50 mg BID PO Last administered on 08/16/16 11: 36; Start 08/15/16 at 21:00 Atorvastatin Calcium (Lipitor) 10 mg QHS PO ; Start 08/15/16 at 21:00; Status Cancel Aspirin (Ecotrin) 81 mg [id number] PO Last administered on 08/16/16 11:35; Start 08/16/16 at 08:00 Pantoprazole Sodium (Protonix) 40 mg DAILYAC PO Last administered on 08/16/16 11:30; Start 08/15/16 at 17:00 Cyclobenzaprine HCl (Flexeril) 10 mg BID PO Last administered on 08/16/16 11:35 ; Start 08/15/16 at 21:00 Famotidine (Pepcid) 20 mg DAILY PO Last administered on 08/16/16 11:31; Start 08/16/16 at 09:00 Tramadol HCl (Ultram) 50 mg PRN DAILY PRN PO MILD PAIN; Start 08/15/16 at 18:45 Terazosin HCl (Hytrin) 2 mg QHS PO Last administered on 08/15/16 20:29; Start 08/15/16 at 21:00 Non-Formulary Medication 1 ea QHS PO ; Start 08/15/16 at 21:00 Acetaminophen (Tylenol) 325 mg PRN Q6HRS PRN PO MILD PAIN / TEMP; Start at 18:45 Acetaminophen/ Hydrocodone Bitart (Lortab 5/325) 1 tab PRN Q6HRS PRN PO MODERATE TO SEVERE PAIN; Start 08/15/16 at 18:45 Hydralazine HCl (Apresoline) 10 mg PRN Q4HRS PRN IVP ELEVATED BP, SEE COMMENTS ; Start 08/15/16 at 18:45 Ondansetron HCl (Zofran) 4 mg PRN Q8HRS PRN IV NAUSEA/VOMITING; Start 08/15/16 at 18:45 Albuterol Sulfate (Ventolin Neb Soln) 2.5 mg PRN Q4HRS PRN NEB SHORTNESS OF BREATH; Start 08/15/16 at 18:45 Iohexol (Omnipaque 300 Mg/ml) 75 ml 1X ONCE IV Last administered on 08/16/16 09:16; Start 08/16/16 at 07:00; Stop 08/16/16 at 07:01; Status DC Info (Do NOT chart on this entry -- for MONITORING) 1 each PRN DAILY PRN MC SEE COMMENTS; Start 08/16/16 at 06:30; Stop 08/18/16 at 06:29 Regadenoson 0.4 mg 0.4 mg 1X ONCE IV Last administered on 08/16/16 08:57; Start 08/16/16 at 08:00; Stop 08/16/16 at 08:06; Status DC Sodium Chloride (Iv Sodium Chloride 0.9% 1000ml Bag) 1,000 ml @ 75 mls/hr [id number] IV ; Start 08/16/16 at 18:30 Active Scripts Active Reported Metoprolol Tartrate 50 Mg Tablet 1 Tab PO BID Amlodipine Besylate 10 Mg Tablet 10 Mg PO DAILY Famotidine 20 Mg Tablet 20 Mg PO DAILY Terazosin Hcl 2 Mg Capsule 2 Mg PO HS Tramadol Hcl 50 Mg Tablet 50 Mg PO PRNQ6 PRN Cyclobenzaprine Hcl 10 Mg Tablet 1 Tab PO BID Pravastatin Sodium 40 Mg Tablet 1 Tab PO QHS Allergies Allergies: Coded Allergies: No Known Allergies (Verified Allergy, Unknown, 09/20/15) Physical Exam General: Alert, Oriented X3, No acute distress HEENT: Atraumatic, EOMI Lungs: Clear to auscultation, Normal air movement Heart: Regular rate, Normal S1, Normal S2 Abdomen: Normal bowel sounds, Soft, No tenderness Extremities: No clubbing, No cyanosis, No edema, Normal pulses, Other ( Palpable radial b/l, palpable femoral b/l, palpable popliteal b/l, palpable DP/ PT b/l) Skin: No rashes, No breakdown Neuro: Normal gait, Normal speech, Strength at 5/5 X4 ext, Normal tone, Sensation intact Psych/Mental Status: Mental status NL, Mood NL MUSCULOSKELETAL: No deformity, No swelling, Full range of motion without pain Vitals VITALS Vital Signs Date Time Temp Pulse Resp B/P Pulse Ox O2 Delivery O2 Flow Rate FiO2 08/16/16 15:00 98.7 80 18 137/70 94 Room Air 98.7 Labs Labs Laboratory Tests Test 08/15/16 13:30 08/15/16 19:45 08/16/16 02:15 White Blood Count 4.3x10^3/uL (4.0-11.0) 5.3x10^3/uL (4.0-11.0) Red Blood Count 4.93x10^6/uL (4.30-5.70) 4.86x10^6/uL (4.30-5.70) Hemoglobin 15.5g/dL (13.0-17.5) 15.0g/dL (13.0-17.5) Hematocrit 44.6% (39.0-53.0) 45.1% (39.0-53.0) Mean Corpuscular Volume 91fL (79-100) 93fL (79-100) Mean Corpuscular Hemoglobin 32pg (25-35) 31pg (25-35) Mean Corpuscular Hemoglobin Concent 35g/dL (31-37) 33g/dL (31-37) Red Cell Distribution Width 13.3% (11.5-14.5) 13.6% (11.5-14.5) Platelet Count 164x10^3/uL (140-400) 154x10^3/uL (140-400) Neutrophils (%) (Auto) 80% (31-73) 64% (31-73) Lymphocytes (%) (Auto) 11% (24-48) 22% (24-48) Monocytes (%) (Auto) 6% (0-9) 10% (0-9) Eosinophils (%) (Auto) 1% (0-3) 3% (0-3) Basophils (%) (Auto) 2% (0-3) 1% (0-3) Neutrophils # (Auto) 3.5x10^3uL (1.8-7.7) 3.4x10^3uL (1.8-7.7) Lymphocytes # (Auto) 0.5x10^3/uL (1.0-4.8) 1.2x10^3/uL (1.0-4.8) Monocytes # (Auto) 0.2x10^3/uL (0.0-1.1) 0.5x10^3/uL (0.0-1.1) Eosinophils # (Auto) 0.0x10^3/uL (0.0-0.7) 0.2x10^3/uL (0.0-0.7) Basophils # (Auto) 0.1x10^3/uL (0.0-0.2) 0.1x10^3/uL (0.0-0.2) D-Dimer (Taylor) 0.81ug/mlFEU (0.00-0.50) Sodium Level 138mmol/L (136-145) 140mmol/L (136-145) Potassium Level 4.5mmol/L (3.5-5.1) 3.9mmol/L (3.5-5.1) Chloride Level 104mmol/L (98-107) 106mmol/L (98-107) Carbon Dioxide Level 24mmol/L (21-32) 26mmol/L (21-32) Anion Gap 10 (6-14) 8 (6-14) Blood Urea Nitrogen 14mg/dL (8-26) 12mg/dL (8-26) Creatinine 0.8mg/dL (0.7-1.3) 0.9mg/dL (0.7-1.3) Estimated GFR (Cockcroft-Gault) 96.1 83.9 BUN/Creatinine Ratio 18 (6-20) Glucose Level 141mg/dL (70-99) 93mg/dL (70-99) Hemoglobin A1c 5.5% (4.8-5.6) Calcium Level 8.7mg/dL (8.5-10.1) 8.3mg/dL (8.5-10.1) Magnesium Level 2.1mg/dL (1.8-2.4) Total Bilirubin 0.5mg/dL (0.2-1.0) Aspartate Amino Transf (AST/SGOT) 27U/L (15-37) Alanine Aminotransferase (ALT/SGPT) 27U/L (16-63) Alkaline Phosphatase 56U/L (46-116) Creatine Kinase 151U/L (39-308) Creatine Kinase MB (Mass) 1.7ng/mL (0.0-3.6) Creatine Kinase MB Relative Index 1.1% (0-4) Troponin I Quantitative < 0.017ng/mL (0.000-0.055) < 0.017ng/mL (0.000-0.055) < 0.017ng/mL (0.000-0.055) WV-Pvg-K-Type Natriuretic Peptide 49pg/mL (0-124) Total Protein 7.7g/dL (6.4-8.2) Albumin 3.9g/dL (3.4-5.0) Albumin/Globulin Ratio 1.0 (1.0-1.7) Lipase 136U/L (73-393) Thyroid Stimulating Hormone (TSH) 4.609uIU/mL (0.358-3.74) Free Thyroxine 0.89ng/dL (0.76-1.46) Triglycerides Level 64mg/dL (0-150) Cholesterol Level 125mg/dL (0-200) LDL Cholesterol, Calculated 74mg/dL (0-100) VLDL Cholesterol, Calculated 13mg/dL (0-40) Non-HDL Cholesterol Calculated 87mg/dL (0-129) HDL Cholesterol 38mg/dL (40-60) Cholesterol/HDL Ratio 3.3 Laboratory Tests Test 08/15/16 19:45 08/16/16 02:15 Troponin I Quantitative < 0.017ng/mL (0.000-0.055) < 0.017ng/mL (0.000-0.055) White Blood Count 5.3x10^3/uL (4.0-11.0) Red Blood Count 4.86x10^6/uL (4.30-5.70) Hemoglobin 15.0g/dL (13.0-17.5) Hematocrit 45.1% (39.0-53.0) Mean Corpuscular Volume 93fL (79-100) Mean Corpuscular Hemoglobin 31pg (25-35) Mean Corpuscular Hemoglobin Concent 33g/dL (31-37) Red Cell Distribution Width 13.6% (11.5-14.5) Platelet Count 154x10^3/uL (140-400) Neutrophils (%) (Auto) 64% (31-73) Lymphocytes (%) (Auto) 22% (24-48) Monocytes (%) (Auto) 10% (0-9) Eosinophils (%) (Auto) 3% (0-3) Basophils (%) (Auto) 1% (0-3) Neutrophils # (Auto) 3.4x10^3uL (1.8-7.7) Lymphocytes # (Auto) 1.2x10^3/uL (1.0-4.8) Monocytes # (Auto) 0.5x10^3/uL (0.0-1.1) Eosinophils # (Auto) 0.2x10^3/uL (0.0-0.7) Basophils # (Auto) 0.1x10^3/uL (0.0-0.2) Sodium Level 140mmol/L (136-145) Potassium Level 3.9mmol/L (3.5-5.1) Chloride Level 106mmol/L (98-107) Carbon Dioxide Level 26mmol/L (21-32) Anion Gap 8 (6-14) Blood Urea Nitrogen 12mg/dL (8-26) Creatinine 0.9mg/dL (0.7-1.3) Estimated GFR (Cockcroft-Gault) 83.9 Glucose Level 93mg/dL (70-99) Calcium Level 8.3mg/dL (8.5-10.1) Triglycerides Level 64mg/dL (0-150) Cholesterol Level 125mg/dL (0-200) LDL Cholesterol, Calculated 74mg/dL (0-100) VLDL Cholesterol, Calculated 13mg/dL (0-40) Non-HDL Cholesterol Calculated 87mg/dL (0-129) HDL Cholesterol 38mg/dL (40-60) Cholesterol/HDL Ratio 3.3 Images Images Echo 08/15/16: normal LV function, EF 55-60% Nuclear Stress Test 08/16/16: no evidence of ischemia, EF 83% CTA chest 08/16/16: Descending thoracic aortic aneurysm near the level of diaphragm at 4.7 x 5.3 cm and appears to be proximal to the celiac, although the abdominal views are limited (b/c chest CTA). Assessment/Plan Assessment/Plan Assessment: 66 y/o male with a descending thoracic aortic aneurysm Plan: Recommend CTA of the chest, abdomen, and pelvis to further evaluated the descending thoracic aortic aneurysm. Creatinine is 0.9, and will hydrate the patient overnight with NS at 75 cc/hr then obtain CTA in the morning. Recommend medical therapy with aspirin, and to start a statin. The echo was reviewed, normal EF 55-60% and Stress test reviewed with no evidence of ischemia. If the descending thoracic aortic aneurysm is 5.3, recommend observation until the aneurysm size is 6-6.5 cm for repair. The type of repair would depend on the distal landing zone if enough length proximal to the celiac artery for an endovascular stent graft. The treatment options of open surgery and endovascular repair were generally discussed with the patient, and the plan for observation with repeat CTA of the chest/abd/pelvis in 6 months if TAAA is 5.3 cm. This is a new diagnosis, and there is not a comparison of previous images. The patient understands the plan. Thank you for the consult. LJ RIDDLE MD August 16, 2016 18:38
[2016-08-16] MEDS: IV NORMAL SALINE 1000ML BAG 1,000 ML IV SCH (19:05)
[2016-08-16 19:49] VITALS: BP 124/69
[2016-08-16] MEDS: TERAZOSIN 1 MG CAPSULE. PO SCH (21:03)
[2016-08-16] MEDS: PRAVASTATIN 40MG PO SCH (21:03)
[2016-08-16 22:33] VITALS: BP 107/64
[2016-08-17 02:20] VITALS: BP 110/64
[2016-08-17 07:54] VITALS: BP 138/81
[2016-08-17 07:55] LABS: BASO # 0.1 x10^3/uL (0.0-0.2); BASO % 2 % (0-3); EOS % 4 % (0-3); HEMOGLOBIN 14.9 g/dL (13.0-17.5); LYMPH # 1.3 x10^3/uL (1.0-4.8); LYMPH % 27 % (24-48); MEAN CORPUSCULAR HEMOGLOBIN 31 pg (25-35); MEAN CORPUSCULAR HGB CONC 33 g/dL (31-37); MEAN CORPUSCULAR VOLUME 94 fL (79-100); MONO % 9 % (0-9); NEUT % 58 % (31-73); PLATELET COUNT 138 x10^3/uL (140-400); RED BLOOD COUNT 4.78 x10^6/uL (4.30-5.70); RED CELL DISTRIBUTION WIDTH 13.6 % (11.5-14.5); WHITE BLOOD COUNT 4.8 x10^3/uL (4.0-11.0)
[2016-08-17 07:56] LABS: CALCIUM 7.9 mg/dL (8.5-10.1); CREATININE 0.9 mg/dL (0.7-1.3); GFR 83.9; POTASSIUM 3.7 mmol/L (3.5-5.1)
[2016-08-17] MEDS ORDERED: IOHEXOL 350 MG/ML 100 ML VIAL. IV ONE (08:15)
[2016-08-17] MEDS ORDERED: CONTRAST GIVEN MC PRN (08:15)
[2016-08-17] MEDS: IV NORMAL SALINE 1000ML BAG 1,000 ML IV SCH (08:33)
[2016-08-17] MEDS: METOPROLOL TART IMMED RELEASE 50 MG TABLET. PO SCH (08:34)
[2016-08-17] MEDS: PANTOPRAZOLE 40 MG TABLET.DR. PO SCH (08:34)
[2016-08-17] MEDS: CYCLOBENZAPRINE 10 MG TABLET. PO SCH (08:34)
[2016-08-17] MEDS: amLODIPine BESYLATE 10 MG TABLET PO SCH (08:35)
[2016-08-17] MEDS: ASPIRIN ENTERIC COATED 81 MG TABLET.DR. PO SCH (08:35)
[2016-08-17] MEDS: FAMOTIDINE 20 MG TABLET. PO SCH (08:36)
--- NOTE | 2016-08-17 09:58 | RAD ---
CTA of the chest, abdomen and pelvis with contrast, 08/17/2016: History: Aneurysm Multidetector CT imaging was performed following an IV bolus injection of iodinated contrast material. Multiplanar reconstructions were produced including 3-D volume rendered reconstructions of the aorta and its major branches. There is moderate calcific plaquing of the thoracic aorta. The ascending aorta is of normal caliber. There is no significant narrowing of the cervicocephalic arterial origins from the aortic arch. A small plaque ulceration is seen in the proximal descending thoracic aorta. There is an aneurysm of the descending thoracic aorta centered near the level of the diaphragm. It protrudes posteriorly. It contains moderate irregular plaque posteriorly. At the level of this aneurysm the aorta measures 5.2 cm in greatest AP dimension, 4.7 cm in width and 5.8 cm in craniocaudad extent. Its inferior margin lies approximately 3 cm superior to the takeoff of the celiac artery. Spinal arteries arise from the aorta just above and below the level of this aneurysm. No large spinal artery arising directly from the aneurysm sac is identified. There is mild plaquing at the celiac artery origin causing approximately 50% diameter narrowing. There is mild calcific plaquing at the superior mesenteric artery origin without significant narrowing. There is a single right renal artery and 2 left renal arteries with only mild atherosclerotic narrowing at the origins of those vessels. A patent inferior mesenteric artery is present. There is moderate atherosclerotic plaquing of the distal abdominal aorta and iliac arteries without evidence of aneurysm or significant stenosis. Incidental CT findings include the presence of a nonspecific subcentimeter low density nodule in the left lobe of the thyroid gland. There is mild bilateral renal cortical scarring. Several small left renal cysts are present. Both inguinal rings are dilated without evidence of bowel herniation. There are scattered degenerative changes in the spine. There is bilateral spondylolysis at L5. There is mild loss of height of the T12 vertebral body of indeterminate age. IMPRESSION: 1. Moderate generalized aortic atherosclerosis with a small plaque ulceration noted in the proximal descending thoracic aorta. 2. Moderate sized aortic aneurysm at the level of the diaphragm. 3. Miscellaneous incidental findings as described above. PQRS Compliance Statement: One or more of the following individualized dose reduction techniques were utilized for this examination: 1. Automated exposure control 2. Adjustment of the mA and/or kV according to patient size 3. Use of iterative reconstruction technique
[2016-08-17 10:20] VITALS: BP 113/70
--- NOTE | 2016-08-17 11:11 | PDOC ---
PROGRESS NOTES Chief Complaint Chief Complaint LAte ENTRY, pt seen 08/16 had tried to DC for chest pain, stress test neg, but CT scan showed abd aortic aneurysm DC cancelled, and Dr. Cota called from vascular surgery History of Present Illness History of Present Illness 1. Chest pain: low prob MPI. 2. HTN: 3. HLP: 4. AAA: .2 cm 3. Hx CVA Vitals Vitals Vital Signs Date Time Temp Pulse Resp B/P (MAP) Pulse Ox O2 Delivery O2 Flow Rate FiO2 08/17/16 10:20 98.4 58 17 113/70 (84) 97 Room Air 98.4 Physical Exam General: Alert, Oriented X3, No acute distress Heart: Regular rate, Normal S1, Normal S2 Abdomen: Normal bowel sounds, Soft, No tenderness Extremities: No clubbing, No cyanosis, No edema, Normal pulses, Other ( Palpable radial b/l, palpable femoral b/l, palpable popliteal b/l, palpable DP/ PT b/l) Skin: No rashes, No breakdown Labs LABS Laboratory Tests Test 08/17/16 03:15 08/17/16 03:25 Sodium Level 143 mmol/L (136-145) Potassium Level 3.7 mmol/L (3.5-5.1) Chloride Level 106 mmol/L (98-107) Carbon Dioxide Level 30 mmol/L (21-32) Anion Gap 7 (6-14) Blood Urea Nitrogen 16 mg/dL (8-26) Creatinine 0.9 mg/dL (0.7-1.3) Estimated GFR (Cockcroft-Gault) 83.9 Glucose Level 101 mg/dL (70-99) Calcium Level 7.9 mg/dL (8.5-10.1) White Blood Count 4.8 x10^3/uL (4.0-11.0) Red Blood Count 4.78 x10^6/uL (4.30-5.70) Hemoglobin 14.9 g/dL (13.0-17.5) Hematocrit 45.0 % (39.0-53.0) Mean Corpuscular Volume 94 fL (79-100) Mean Corpuscular Hemoglobin 31 pg (25-35) Mean Corpuscular Hemoglobin Concent 33 g/dL (31-37) Red Cell Distribution Width 13.6 % (11.5-14.5) Platelet Count 138 x10^3/uL (140-400) Neutrophils (%) (Auto) 58 % (31-73) Lymphocytes (%) (Auto) 27 % (24-48) Monocytes (%) (Auto) 9 % (0-9) Eosinophils (%) (Auto) 4 % (0-3) Basophils (%) (Auto) 2 % (0-3) Neutrophils # (Auto) 2.8 x10^3uL (1.8-7.7) Lymphocytes # (Auto) 1.3 x10^3/uL (1.0-4.8) Monocytes # (Auto) 0.4 x10^3/uL (0.0-1.1) Eosinophils # (Auto) 0.2 x10^3/uL (0.0-0.7) Basophils # (Auto) 0.1 x10^3/uL (0.0-0.2) Review of Systems Review of Systems no n.v.d Assessment and Plan Assessmemt and Plan Vascular consult Problems Medical Problems: (1) Chest pain Status: Acute (2) Nausea & vomiting Status: Acute Problems: Comment Review of Relevant I have reviewed the following items avery (where applicable) has been applied. Labs Laboratory Tests Test 08/15/16 13:30 08/15/16 19:45 08/16/16 02:15 08/17/16 03:15 White Blood Count 4.3 x10^3/uL (4.0-11.0) 5.3 x10^3/uL (4.0-11.0) Red Blood Count 4.93 x10^6/uL (4.30-5.70) 4.86 x10^6/uL (4.30-5.70) Hemoglobin 15.5 g/dL (13.0-17.5) 15.0 g/dL (13.0-17.5) Hematocrit 44.6 % (39.0-53.0) 45.1 % (39.0-53.0) Mean Corpuscular Volume 91 fL (79-100) 93 fL (79-100) Mean Corpuscular Hemoglobin 32 pg (25-35) 31 pg (25-35) Mean Corpuscular Hemoglobin Concent 35 g/dL (31-37) 33 g/dL (31-37) Red Cell Distribution Width 13.3 % (11.5-14.5) 13.6 % (11.5-14.5) Platelet Count 164 x10^3/uL (140-400) 154 x10^3/uL (140-400) Neutrophils (%) (Auto) 80 % (31-73) 64 % (31-73) Lymphocytes (%) (Auto) 11 % (24-48) 22 % (24-48) Monocytes (%) (Auto) 6 % (0-9) 10 % (0-9) Eosinophils (%) (Auto) 1 % (0-3) 3 % (0-3) Basophils (%) (Auto) 2 % (0-3) 1 % (0-3) Neutrophils # (Auto) 3.5 x10^3uL (1.8-7.7) 3.4 x10^3uL (1.8-7.7) Lymphocytes # (Auto) 0.5 x10^3/uL (1.0-4.8) 1.2 x10^3/uL (1.0-4.8) Monocytes # (Auto) 0.2 x10^3/uL (0.0-1.1) 0.5 x10^3/uL (0.0-1.1) Eosinophils # (Auto) 0.0 x10^3/uL (0.0-0.7) 0.2 x10^3/uL (0.0-0.7) Basophils # (Auto) 0.1 x10^3/uL (0.0-0.2) 0.1 x10^3/uL (0.0-0.2) D-Dimer (Taylor) 0.81 ug/mlFEU (0.00-0.50) Sodium Level 138 mmol/L (136-145) 140 mmol/L (136-145) 143 mmol/L (136-145) Potassium Level 4.5 mmol/L (3.5-5.1) 3.9 mmol/L (3.5-5.1) 3.7 mmol/L (3.5-5.1) Chloride Level 104 mmol/L (98-107) 106 mmol/L (98-107) 106 mmol/L (98-107) Carbon Dioxide Level 24 mmol/L (21-32) 26 mmol/L (21-32) 30 mmol/L (21-32) Anion Gap 10 (6-14) 8 (6-14) 7 (6-14) Blood Urea Nitrogen 14 mg/dL (8-26) 12 mg/dL (8-26) 16 mg/dL (8-26) Creatinine 0.8 mg/dL (0.7-1.3) 0.9 mg/dL (0.7-1.3) 0.9 mg/dL (0.7-1.3) Estimated GFR (Cockcroft-Gault) 96.1 83.9 83.9 BUN/Creatinine Ratio 18 (6-20) Glucose Level 141 mg/dL (70-99) 93 mg/dL (70-99) 101 mg/dL (70-99) Hemoglobin A1c 5.5 % (4.8-5.6) Calcium Level 8.7 mg/dL (8.5-10.1) 8.3 mg/dL (8.5-10.1) 7.9 mg/dL (8.5-10.1) Magnesium Level 2.1 mg/dL (1.8-2.4) Total Bilirubin 0.5 mg/dL (0.2-1.0) Aspartate Amino Transf (AST/SGOT) 27 U/L (15-37) Alanine Aminotransferase (ALT/SGPT) 27 U/L (16-63) Alkaline Phosphatase 56 U/L (46-116) Creatine Kinase 151 U/L (39-308) Creatine Kinase MB (Mass) 1.7 ng/mL (0.0-3.6) Creatine Kinase MB Relative Index 1.1 % (0-4) Troponin I Quantitative < 0.017 ng/mL (0.000-0.055) < 0.017 ng/mL (0.000-0.055) < 0.017 ng/mL (0.000-0.055) IF-Ade-W-Type Natriuretic Peptide 49 pg/mL (0-124) Total Protein 7.7 g/dL (6.4-8.2) Albumin 3.9 g/dL (3.4-5.0) Albumin/Globulin Ratio 1.0 (1.0-1.7) Lipase 136 U/L (73-393) Thyroid Stimulating Hormone (TSH) 4.609 uIU/mL (0.358-3.74) Free Thyroxine 0.89 ng/dL (0.76-1.46) Triglycerides Level 64 mg/dL (0-150) Cholesterol Level 125 mg/dL (0-200) LDL Cholesterol, Calculated 74 mg/dL (0-100) VLDL Cholesterol, Calculated 13 mg/dL (0-40) Non-HDL Cholesterol Calculated 87 mg/dL (0-129) HDL Cholesterol 38 mg/dL (40-60) Cholesterol/HDL Ratio 3.3 Test 08/17/16 03:25 White Blood Count 4.8 x10^3/uL (4.0-11.0) Red Blood Count 4.78 x10^6/uL (4.30-5.70) Hemoglobin 14.9 g/dL (13.0-17.5) Hematocrit 45.0 % (39.0-53.0) Mean Corpuscular Volume 94 fL (79-100) Mean Corpuscular Hemoglobin 31 pg (25-35) Mean Corpuscular Hemoglobin Concent 33 g/dL (31-37) Red Cell Distribution Width 13.6 % (11.5-14.5) Platelet Count 138 x10^3/uL (140-400) Neutrophils (%) (Auto) 58 % (31-73) Lymphocytes (%) (Auto) 27 % (24-48) Monocytes (%) (Auto) 9 % (0-9) Eosinophils (%) (Auto) 4 % (0-3) Basophils (%) (Auto) 2 % (0-3) Neutrophils # (Auto) 2.8 x10^3uL (1.8-7.7) Lymphocytes # (Auto) 1.3 x10^3/uL (1.0-4.8) Monocytes # (Auto) 0.4 x10^3/uL (0.0-1.1) Eosinophils # (Auto) 0.2 x10^3/uL (0.0-0.7) Basophils # (Auto) 0.1 x10^3/uL (0.0-0.2) Laboratory Tests Test 08/17/16 03:15 08/17/16 03:25 Sodium Level 143 mmol/L (136-145) Potassium Level 3.7 mmol/L (3.5-5.1) Chloride Level 106 mmol/L (98-107) Carbon Dioxide Level 30 mmol/L (21-32) Anion Gap 7 (6-14) Blood Urea Nitrogen 16 mg/dL (8-26) Creatinine 0.9 mg/dL (0.7-1.3) Estimated GFR (Cockcroft-Gault) 83.9 Glucose Level 101 mg/dL (70-99) Calcium Level 7.9 mg/dL (8.5-10.1) White Blood Count 4.8 x10^3/uL (4.0-11.0) Red Blood Count 4.78 x10^6/uL (4.30-5.70) Hemoglobin 14.9 g/dL (13.0-17.5) Hematocrit 45.0 % (39.0-53.0) Mean Corpuscular Volume 94 fL (79-100) Mean Corpuscular Hemoglobin 31 pg (25-35) Mean Corpuscular Hemoglobin Concent 33 g/dL (31-37) Red Cell Distribution Width 13.6 % (11.5-14.5) Platelet Count 138 x10^3/uL (140-400) Neutrophils (%) (Auto) 58 % (31-73) Lymphocytes (%) (Auto) 27 % (24-48) Monocytes (%) (Auto) 9 % (0-9) Eosinophils (%) (Auto) 4 % (0-3) Basophils (%) (Auto) 2 % (0-3) Neutrophils # (Auto) 2.8 x10^3uL (1.8-7.7) Lymphocytes # (Auto) 1.3 x10^3/uL (1.0-4.8) Monocytes # (Auto) 0.4 x10^3/uL (0.0-1.1) Eosinophils # (Auto) 0.2 x10^3/uL (0.0-0.7) Basophils # (Auto) 0.1 x10^3/uL (0.0-0.2) Medications Current Medications Fentanyl Citrate (Fentanyl 2ml Vial) 50 mcg PRN Q15MIN PRN IV PAIN GREATER THAN 3/10 Last administered on 08/15/16t 13:43; Start 08/15/16 at 13:30; Stop 08/15 at 16:20; Status DC Sodium Chloride 1,000 ml @ 1,000 mls/hr Q1H IV Last administered on 08/15/16 13:44; Start 08/15/16 at 13:30; Stop 08/15/16 at 14:29; Status DC Sodium Chloride (Normal Saline Flush) 10 ml QSHIFT PRN IV AFTER MEDS AND BLOOD DRAWS Last administered on 08/15/16 13:46; Start 08/15/16 at 13:30 Ondansetron HCl (Zofran) 4 mg 1X ONCE IV Last administered on 08/15/16 14:00; Start 08/15/16 at 14:00; Stop 08/15/16 at 14:01; Status DC Ondansetron HCl (Zofran) 4 mg PRN Q8HRS PRN IV NAUSEA/VOMITING; Start 08/15/16 at 14:00; Stop 08/16/16 at 13:59; Status DC Fentanyl Citrate (Fentanyl 2ml Vial) 50 mcg PRN Q1HR PRN IV PAIN; Start at 14:00; Stop 08/16/16 at 13:59; Status DC Acetaminophen (Tylenol) 650 mg PRN Q4HRS PRN PO FEVER; Start 08/15/16 at 14:00; Stop 08/16/16 at 13:59; Status DC Amlodipine Besylate (Norvasc) 10 mg DAILY PO Last administered on 08/17/16 08: 35; Start 08/15/16 at 17:00 Metoprolol Tartrate (Lopressor) 50 mg BID PO Last administered on 08/17/16 08: 34; Start 08/15/16 at 21:00 Atorvastatin Calcium (Lipitor) 10 mg QHS PO ; Start 08/15/16 at 21:00; Status Cancel Aspirin (Ecotrin) 81 mg DAILYWBKFT PO Last administered on 08/17/16 08:35; Start 08/16/16 at 08:00 Pantoprazole Sodium (Protonix) 40 mg DAILYAC PO Last administered on 08/17/16 08:34; Start 08/15/16 at 17:00 Cyclobenzaprine HCl (Flexeril) 10 mg BID PO Last administered on 08/17/16 08:34 ; Start 08/15/16 at 21:00 Famotidine (Pepcid) 20 mg DAILY PO Last administered on 08/17/16 08:36; Start 08/16/16 at 09:00 Tramadol HCl (Ultram) 50 mg PRN DAILY PRN PO MILD PAIN; Start 08/15/16 at 18:45 Terazosin HCl (Hytrin) 2 mg QHS PO Last administered on 08/16/16 21:03; Start 08/15/16 at 21:00 Non-Formulary Medication 1 ea QHS PO Last administered on 08/16/16 21:03; Start 08/15/16 at 21:00 Acetaminophen (Tylenol) 325 mg PRN Q6HRS PRN PO MILD PAIN / TEMP; Start at 18:45 Acetaminophen/ Hydrocodone Bitart (Lortab 5/325) 1 tab PRN Q6HRS PRN PO MODERATE TO SEVERE PAIN; Start 08/15/16 at 18:45 Hydralazine HCl (Apresoline) 10 mg PRN Q4HRS PRN IVP ELEVATED BP, SEE COMMENTS ; Start 08/15/16 at 18:45 Ondansetron HCl (Zofran) 4 mg PRN Q8HRS PRN IV NAUSEA/VOMITING; Start 08/15/16 at 18:45 Albuterol Sulfate (Ventolin Neb Soln) 2.5 mg PRN Q4HRS PRN NEB SHORTNESS OF BREATH; Start 08/15/16 at 18:45 Iohexol (Omnipaque 300 Mg/ml) 75 ml 1X ONCE IV Last administered on 08/16/16 09:16; Start 08/16/16 at 07:00; Stop 08/16/16 at 07:01; Status DC Info (Do NOT chart on this entry -- for MONITORING) 1 each PRN DAILY PRN MC SEE COMMENTS; Start 08/16/16 at 06:30; Stop 08/18/16 at 06:29 Regadenoson (Lexiscan) 0.4 mg 1X ONCE IV Last administered on 08/16/16 08:57; Start 08/16/16 at 08:00; Stop 08/16/16 at 08:06; Status DC Sodium Chloride 1,000 ml @ 75 mls/hr [id number] IV Last administered on 08/17/16 08:33; Start 08/16/16 at 18:30 Iohexol (Omnipaque 350 Mg/ml) 90 ml 1X ONCE IV ; Start 08/17/16 at 08:15; Stop 08/17/16 at 08:16; Status DC Info (Do NOT chart on this entry -- for MONITORING) 1 each PRN DAILY PRN MC SEE COMMENTS; Start 08/17/16 at 08:15; Stop 08/19/16 at 08:14 Active Scripts Active Reported Metoprolol Tartrate 50 Mg Tablet 1 Tab PO BID Amlodipine Besylate 10 Mg Tablet 10 Mg PO DAILY Famotidine 20 Mg Tablet 20 Mg PO DAILY Terazosin Hcl 2 Mg Capsule 2 Mg PO HS Tramadol Hcl 50 Mg Tablet 50 Mg PO PRNQ6 PRN Cyclobenzaprine Hcl 10 Mg Tablet 1 Tab PO BID Pravastatin Sodium 40 Mg Tablet 1 Tab PO QHS Vitals/I & O Vital Sign - Last 24 Hours 08/16/16 08/16/16 08/16/16 08/16/16 11:30 11:34 11:36 15:00 Temp 98.5 98.7 98.5 98.7 Pulse 70 83 71 80 Resp 16 18 B/P (MAP) 149/71 (97) 149/77 149/77 137/70 (92) Pulse Ox 97 94 O2 Delivery Room Air Room Air 08/16/16 08/16/16 08/16/16 08/16/16 19:49 20:03 21:03 21:04 Temp 98.2 98.2 Pulse 67 67 67 Resp 20 B/P (MAP) 124/69 (87) 124/69 124/69 Pulse Ox 95 O2 Delivery Room Air Room Air 08/16/16 08/17/16 08/17/16 08/17/16 22:33 02:20 07:54 08:00 Temp 97.9 98.4 98.5 97.9 98.4 98.5 Pulse 57 59 69 Resp 20 16 18 B/P (MAP) 107/64 (78) 110/64 (79) 138/81 (100) Pulse Ox 95 96 97 O2 Delivery Room Air Room Air Room Air Room Air 08/17/16 08/17/16 08/17/16 08:34 08:35 10:20 Temp 98.4 98.4 Pulse 73 73 58 Resp 17 B/P (MAP) 138/81 138/81 113/70 (84) Pulse Ox 97 O2 Delivery Room Air Intake and Output 08/16/16 08/16/16 08/17/16 15:00 23:00 07:00 Intake Total 1180 ml Balance 1180 ml JONNY JOSEPH MD August 17, 2016 11:11
--- NOTE | 2016-08-17 11:24 | PDOC ---
MANJU QUESADA [employer]ACH/JOB [employer]ELOPER 08/17/16 1124: PROGRESS NOTES Subjective Subjective "I feel ok today." Objective Objective Vascular Surgery follow up: O: Comfortable and without chest/back pain today. Multiple family members at bedside. CTA results reviewed. Descending aortic aneurysm 4.7cm width. Results briefly reviewed with Dr. Jose An. Spoke with family regarding ongoing surveillance and need for repeat CTA with follow up appt with Dr. An in 6mo. Instructed pt to take daily Aspirin 81mg, statin and maintain compliance with BP medications. Also to continue smoking cessation. All questions answered. I have spoke with Dr. Morales. Ok to discharge to home from a vascular surgery perspective when medically stable Vital Signs Date Time Temp Pulse Resp B/P (MAP) Pulse Ox O2 Delivery O2 Flow Rate FiO2 08/17/16 10:20 98.4 58 17 113/70 (84) 97 Room Air 98.4 Intake and Output 08/17/16 07:00 Intake Total 1180 ml Balance 1180 ml Intake Oral 1180 ml # Voids 5 Assessment Assessment Problems Medical Problems: (1) Chest pain Status: Acute (2) Nausea & vomiting Status: Acute Comment Review of Relevant I have reviewed the following items avery (where applicable) has been applied. Labs Laboratory Tests Test 08/15/16 13:30 08/15/16 19:45 08/16/16 02:15 08/17/16 03:15 White Blood Count 4.3 x10^3/uL (4.0-11.0) 5.3 x10^3/uL (4.0-11.0) Red Blood Count 4.93 x10^6/uL (4.30-5.70) 4.86 x10^6/uL (4.30-5.70) Hemoglobin 15.5 g/dL (13.0-17.5) 15.0 g/dL (13.0-17.5) Hematocrit 44.6 % (39.0-53.0) 45.1 % (39.0-53.0) Mean Corpuscular Volume 91 fL (79-100) 93 fL (79-100) Mean Corpuscular Hemoglobin 32 pg (25-35) 31 pg (25-35) Mean Corpuscular Hemoglobin Concent 35 g/dL (31-37) 33 g/dL (31-37) Red Cell Distribution Width 13.3 % (11.5-14.5) 13.6 % (11.5-14.5) Platelet Count 164 x10^3/uL (140-400) 154 x10^3/uL (140-400) Neutrophils (%) (Auto) 80 % (31-73) 64 % (31-73) Lymphocytes (%) (Auto) 11 % (24-48) 22 % (24-48) Monocytes (%) (Auto) 6 % (0-9) 10 % (0-9) Eosinophils (%) (Auto) 1 % (0-3) 3 % (0-3) Basophils (%) (Auto) 2 % (0-3) 1 % (0-3) Neutrophils # (Auto) 3.5 x10^3uL (1.8-7.7) 3.4 x10^3uL (1.8-7.7) Lymphocytes # (Auto) 0.5 x10^3/uL (1.0-4.8) 1.2 x10^3/uL (1.0-4.8) Monocytes # (Auto) 0.2 x10^3/uL (0.0-1.1) 0.5 x10^3/uL (0.0-1.1) Eosinophils # (Auto) 0.0 x10^3/uL (0.0-0.7) 0.2 x10^3/uL (0.0-0.7) Basophils # (Auto) 0.1 x10^3/uL (0.0-0.2) 0.1 x10^3/uL (0.0-0.2) D-Dimer (Taylor) 0.81 ug/mlFEU (0.00-0.50) Sodium Level 138 mmol/L (136-145) 140 mmol/L (136-145) 143 mmol/L (136-145) Potassium Level 4.5 mmol/L (3.5-5.1) 3.9 mmol/L (3.5-5.1) 3.7 mmol/L (3.5-5.1) Chloride Level 104 mmol/L (98-107) 106 mmol/L (98-107) 106 mmol/L (98-107) Carbon Dioxide Level 24 mmol/L (21-32) 26 mmol/L (21-32) 30 mmol/L (21-32) Anion Gap 10 (6-14) 8 (6-14) 7 (6-14) Blood Urea Nitrogen 14 mg/dL (8-26) 12 mg/dL (8-26) 16 mg/dL (8-26) Creatinine 0.8 mg/dL (0.7-1.3) 0.9 mg/dL (0.7-1.3) 0.9 mg/dL (0.7-1.3) Estimated GFR (Cockcroft-Gault) 96.1 83.9 83.9 BUN/Creatinine Ratio 18 (6-20) Glucose Level 141 mg/dL (70-99) 93 mg/dL (70-99) 101 mg/dL (70-99) Hemoglobin A1c 5.5 % (4.8-5.6) Calcium Level 8.7 mg/dL (8.5-10.1) 8.3 mg/dL (8.5-10.1) 7.9 mg/dL (8.5-10.1) Magnesium Level 2.1 mg/dL (1.8-2.4) Total Bilirubin 0.5 mg/dL (0.2-1.0) Aspartate Amino Transf (AST/SGOT) 27 U/L (15-37) Alanine Aminotransferase (ALT/SGPT) 27 U/L (16-63) Alkaline Phosphatase 56 U/L (46-116) Creatine Kinase 151 U/L (39-308) Creatine Kinase MB (Mass) 1.7 ng/mL (0.0-3.6) Creatine Kinase MB Relative Index 1.1 % (0-4) Troponin I Quantitative < 0.017 ng/mL (0.000-0.055) < 0.017 ng/mL (0.000-0.055) < 0.017 ng/mL (0.000-0.055) UO-Drb-U-Type Natriuretic Peptide 49 pg/mL (0-124) Total Protein 7.7 g/dL (6.4-8.2) Albumin 3.9 g/dL (3.4-5.0) Albumin/Globulin Ratio 1.0 (1.0-1.7) Lipase 136 U/L (73-393) Thyroid Stimulating Hormone (TSH) 4.609 uIU/mL (0.358-3.74) Free Thyroxine 0.89 ng/dL (0.76-1.46) Triglycerides Level 64 mg/dL (0-150) Cholesterol Level 125 mg/dL (0-200) LDL Cholesterol, Calculated 74 mg/dL (0-100) VLDL Cholesterol, Calculated 13 mg/dL (0-40) Non-HDL Cholesterol Calculated 87 mg/dL (0-129) HDL Cholesterol 38 mg/dL (40-60) Cholesterol/HDL Ratio 3.3 Test 08/17/16 03:25 White Blood Count 4.8 x10^3/uL (4.0-11.0) Red Blood Count 4.78 x10^6/uL (4.30-5.70) Hemoglobin 14.9 g/dL (13.0-17.5) Hematocrit 45.0 % (39.0-53.0) Mean Corpuscular Volume 94 fL (79-100) Mean Corpuscular Hemoglobin 31 pg (25-35) Mean Corpuscular Hemoglobin Concent 33 g/dL (31-37) Red Cell Distribution Width 13.6 % (11.5-14.5) Platelet Count 138 x10^3/uL (140-400) Neutrophils (%) (Auto) 58 % (31-73) Lymphocytes (%) (Auto) 27 % (24-48) Monocytes (%) (Auto) 9 % (0-9) Eosinophils (%) (Auto) 4 % (0-3) Basophils (%) (Auto) 2 % (0-3) Neutrophils # (Auto) 2.8 x10^3uL (1.8-7.7) Lymphocytes # (Auto) 1.3 x10^3/uL (1.0-4.8) Monocytes # (Auto) 0.4 x10^3/uL (0.0-1.1) Eosinophils # (Auto) 0.2 x10^3/uL (0.0-0.7) Basophils # (Auto) 0.1 x10^3/uL (0.0-0.2) Laboratory Tests Test 08/17/16 03:15 08/17/16 03:25 Sodium Level 143 mmol/L (136-145) Potassium Level 3.7 mmol/L (3.5-5.1) Chloride Level 106 mmol/L (98-107) Carbon Dioxide Level 30 mmol/L (21-32) Anion Gap 7 (6-14) Blood Urea Nitrogen 16 mg/dL (8-26) Creatinine 0.9 mg/dL (0.7-1.3) Estimated GFR (Cockcroft-Gault) 83.9 Glucose Level 101 mg/dL (70-99) Calcium Level 7.9 mg/dL (8.5-10.1) White Blood Count 4.8 x10^3/uL (4.0-11.0) Red Blood Count 4.78 x10^6/uL (4.30-5.70) Hemoglobin 14.9 g/dL (13.0-17.5) Hematocrit 45.0 % (39.0-53.0) Mean Corpuscular Volume 94 fL (79-100) Mean Corpuscular Hemoglobin 31 pg (25-35) Mean Corpuscular Hemoglobin Concent 33 g/dL (31-37) Red Cell Distribution Width 13.6 % (11.5-14.5) Platelet Count 138 x10^3/uL (140-400) Neutrophils (%) (Auto) 58 % (31-73) Lymphocytes (%) (Auto) 27 % (24-48) Monocytes (%) (Auto) 9 % (0-9) Eosinophils (%) (Auto) 4 % (0-3) Basophils (%) (Auto) 2 % (0-3) Neutrophils # (Auto) 2.8 x10^3uL (1.8-7.7) Lymphocytes # (Auto) 1.3 x10^3/uL (1.0-4.8) Monocytes # (Auto) 0.4 x10^3/uL (0.0-1.1) Eosinophils # (Auto) 0.2 x10^3/uL (0.0-0.7) Basophils # (Auto) 0.1 x10^3/uL (0.0-0.2) Medications Current Medications Fentanyl Citrate (Fentanyl 2ml Vial) 50 mcg PRN Q15MIN PRN IV PAIN GREATER THAN 3/10 Last administered on 08/15/16t 13:43; Start 08/15/16 at 13:30; Stop 08/15 at 16:20; Status DC Sodium Chloride 1,000 ml @ 1,000 mls/hr Q1H IV Last administered on 08/15/16 13:44; Start 08/15/16 at 13:30; Stop 08/15/16 at 14:29; Status DC Sodium Chloride (Normal Saline Flush) 10 ml QSHIFT PRN IV AFTER MEDS AND BLOOD DRAWS Last administered on 08/15/16 13:46; Start 08/15/16 at 13:30 Ondansetron HCl (Zofran) 4 mg 1X ONCE IV Last administered on 08/15/16 14:00; Start 08/15/16 at 14:00; Stop 08/15/16 at 14:01; Status DC Ondansetron HCl (Zofran) 4 mg PRN Q8HRS PRN IV NAUSEA/VOMITING; Start 08/15/16 at 14:00; Stop 08/16/16 at 13:59; Status DC Fentanyl Citrate (Fentanyl 2ml Vial) 50 mcg PRN Q1HR PRN IV PAIN; Start at 14:00; Stop 08/16/16 at 13:59; Status DC Acetaminophen (Tylenol) 650 mg PRN Q4HRS PRN PO FEVER; Start 08/15/16 at 14:00; Stop 08/16/16 at 13:59; Status DC Amlodipine Besylate (Norvasc) 10 mg DAILY PO Last administered on 08/17/16 08: 35; Start 08/15/16 at 17:00 Metoprolol Tartrate (Lopressor) 50 mg BID PO Last administered on 08/17/16 08: 34; Start 08/15/16 at 21:00 Atorvastatin Calcium (Lipitor) 10 mg QHS PO ; Start 08/15/16 at 21:00; Status Cancel Aspirin (Ecotrin) 81 mg DAILYWBKFT PO Last administered on 08/17/16 08:35; Start 08/16/16 at 08:00 Pantoprazole Sodium (Protonix) 40 mg DAILYAC PO Last administered on 08/17/16 08:34; Start 08/15/16 at 17:00 Cyclobenzaprine HCl (Flexeril) 10 mg BID PO Last administered on 08/17/16 08:34 ; Start 08/15/16 at 21:00 Famotidine (Pepcid) 20 mg DAILY PO Last administered on 08/17/16 08:36; Start 08/16/16 at 09:00 Tramadol HCl (Ultram) 50 mg PRN DAILY PRN PO MILD PAIN; Start 08/15/16 at 18:45 Terazosin HCl (Hytrin) 2 mg QHS PO Last administered on 08/16/16 21:03; Start 08/15/16 at 21:00 Non-Formulary Medication 1 ea QHS PO Last administered on 08/16/16 21:03; Start 08/15/16 at 21:00 Acetaminophen (Tylenol) 325 mg PRN Q6HRS PRN PO MILD PAIN / TEMP; Start at 18:45 Acetaminophen/ Hydrocodone Bitart (Lortab 5/325) 1 tab PRN Q6HRS PRN PO MODERATE TO SEVERE PAIN; Start 08/15/16 at 18:45 Hydralazine HCl (Apresoline) 10 mg PRN Q4HRS PRN IVP ELEVATED BP, SEE COMMENTS ; Start 08/15/16 at 18:45 Ondansetron HCl (Zofran) 4 mg PRN Q8HRS PRN IV NAUSEA/VOMITING; Start 08/15/16 at 18:45 Albuterol Sulfate (Ventolin Neb Soln) 2.5 mg PRN Q4HRS PRN NEB SHORTNESS OF BREATH; Start 08/15/16 at 18:45 Iohexol (Omnipaque 300 Mg/ml) 75 ml 1X ONCE IV Last administered on 08/16/16 09:16; Start 08/16/16 at 07:00; Stop 08/16/16 at 07:01; Status DC Info (Do NOT chart on this entry -- for MONITORING) 1 each PRN DAILY PRN MC SEE COMMENTS; Start 08/16/16 at 06:30; Stop 08/18/16 at 06:29 Regadenoson (Lexiscan) 0.4 mg 1X ONCE IV Last administered on 08/16/16 08:57; Start 08/16/16 at 08:00; Stop 08/16/16 at 08:06; Status DC Sodium Chloride 1,000 ml @ 75 mls/hr [id number] IV Last administered on 08/17/16 08:33; Start 08/16/16 at 18:30 Iohexol (Omnipaque 350 Mg/ml) 90 ml 1X ONCE IV ; Start 08/17/16 at 08:15; Stop 08/17/16 at 08:16; Status DC Info (Do NOT chart on this entry -- for MONITORING) 1 each PRN DAILY PRN MC SEE COMMENTS; Start 08/17/16 at 08:15; Stop 08/19/16 at 08:14 Active Scripts Active Reported Metoprolol Tartrate 50 Mg Tablet 1 Tab PO BID Amlodipine Besylate 10 Mg Tablet 10 Mg PO DAILY Famotidine 20 Mg Tablet 20 Mg PO DAILY Terazosin Hcl 2 Mg Capsule 2 Mg PO HS Tramadol Hcl 50 Mg Tablet 50 Mg PO PRNQ6 PRN Cyclobenzaprine Hcl 10 Mg Tablet 1 Tab PO BID Pravastatin Sodium 40 Mg Tablet 1 Tab PO QHS Vitals/I & O Vital Sign - Last 24 Hours 08/16/16 08/16/16 08/16/16 08/16/16 11:30 11:34 11:36 15:00 Temp 98.5 98.7 98.5 98.7 Pulse 70 83 71 80 Resp 16 18 B/P (MAP) 149/71 (97) 149/77 149/77 137/70 (92) Pulse Ox 97 94 O2 Delivery Room Air Room Air 08/16/16 08/16/16 08/16/16 08/16/16 19:49 20:03 21:03 21:04 Temp 98.2 98.2 Pulse 67 67 67 Resp 20 B/P (MAP) 124/69 (87) 124/69 124/69 Pulse Ox 95 O2 Delivery Room Air Room Air 08/16/16 08/17/16 08/17/16 08/17/16 22:33 02:20 07:54 08:00 Temp 97.9 98.4 98.5 97.9 98.4 98.5 Pulse 57 59 69 Resp 20 16 18 B/P (MAP) 107/64 (78) 110/64 (79) 138/81 (100) Pulse Ox 95 96 97 O2 Delivery Room Air Room Air Room Air Room Air 08/17/16 08/17/16 08/17/16 08:34 08:35 10:20 Temp 98.4 98.4 Pulse 73 73 58 Resp 17 B/P (MAP) 138/81 138/81 113/70 (84) Pulse Ox 97 O2 Delivery Room Air Intake and Output 08/16/16 08/16/16 08/17/16 15:00 23:00 07:00 Intake Total 1180 ml Balance 1180 ml LJ RIDDLE MD 08/17/16 1428: PROGRESS NOTES Plan Plan of Care I agree with the history, physical exam, assessment, and plan of Manju Quesada. The CTA of the chest/abd/pelvis was reviewed, and only the descending thoracic aortic aneurysm at 4.7 x 5.3 cm. He will follow-up with Dr. An in 6 months, and continue aspirin, statin, and BP control. MANJU QUESADA APRN August 17, 2016 11:24 LJ RIDDLE MD August 17, 2016 14:28
--- NOTE | 2016-08-17 11:28 | PDOC3 ---
Discharge Summary Visit Information Date of Admission: August 15, 2016 Date of Discharge: August 17, 2016 Admitting Diagnosis: chest pain Final Diagnosis 1. Chest pain: low prob MPI. some GERD contributing 2. HTN: 3. HLP: 4. AAA: 4.7 cm x, 5.2 cm , new diagnosis 3. Hx CVA Problems Medical Problems: (1) Chest pain Status: Acute (2) Nausea & vomiting Status: Acute Brief Hospital Course Allergies Allergies Coded Allergies Type Severity Reaction Last Updated Verified No Known Allergies Allergy Unknown 09/20/15 Yes Vital Signs Vital Signs Date Time Temp Pulse Resp B/P (MAP) Pulse Ox O2 Delivery O2 Flow Rate FiO2 08/17/16 10:20 98.4 58 17 113/70 (84) 97 Room Air 98.4 Lab Results Laboratory Tests Test 08/15/16 13:30 08/15/16 19:45 08/16/16 02:15 08/17/16 03:15 White Blood Count 4.3 x10^3/uL (4.0-11.0) 5.3 x10^3/uL (4.0-11.0) Red Blood Count 4.93 x10^6/uL (4.30-5.70) 4.86 x10^6/uL (4.30-5.70) Hemoglobin 15.5 g/dL (13.0-17.5) 15.0 g/dL (13.0-17.5) Hematocrit 44.6 % (39.0-53.0) 45.1 % (39.0-53.0) Mean Corpuscular Volume 91 fL (79-100) 93 fL (79-100) Mean Corpuscular Hemoglobin 32 pg (25-35) 31 pg (25-35) Mean Corpuscular Hemoglobin Concent 35 g/dL (31-37) 33 g/dL (31-37) Red Cell Distribution Width 13.3 % (11.5-14.5) 13.6 % (11.5-14.5) Platelet Count 164 x10^3/uL (140-400) 154 x10^3/uL (140-400) Neutrophils (%) (Auto) 80 % (31-73) 64 % (31-73) Lymphocytes (%) (Auto) 11 % (24-48) 22 % (24-48) Monocytes (%) (Auto) 6 % (0-9) 10 % (0-9) Eosinophils (%) (Auto) 1 % (0-3) 3 % (0-3) Basophils (%) (Auto) 2 % (0-3) 1 % (0-3) Neutrophils # (Auto) 3.5 x10^3uL (1.8-7.7) 3.4 x10^3uL (1.8-7.7) Lymphocytes # (Auto) 0.5 x10^3/uL (1.0-4.8) 1.2 x10^3/uL (1.0-4.8) Monocytes # (Auto) 0.2 x10^3/uL (0.0-1.1) 0.5 x10^3/uL (0.0-1.1) Eosinophils # (Auto) 0.0 x10^3/uL (0.0-0.7) 0.2 x10^3/uL (0.0-0.7) Basophils # (Auto) 0.1 x10^3/uL (0.0-0.2) 0.1 x10^3/uL (0.0-0.2) D-Dimer (Taylor) 0.81 ug/mlFEU (0.00-0.50) Sodium Level 138 mmol/L (136-145) 140 mmol/L (136-145) 143 mmol/L (136-145) Potassium Level 4.5 mmol/L (3.5-5.1) 3.9 mmol/L (3.5-5.1) 3.7 mmol/L (3.5-5.1) Chloride Level 104 mmol/L (98-107) 106 mmol/L (98-107) 106 mmol/L (98-107) Carbon Dioxide Level 24 mmol/L (21-32) 26 mmol/L (21-32) 30 mmol/L (21-32) Anion Gap 10 (6-14) 8 (6-14) 7 (6-14) Blood Urea Nitrogen 14 mg/dL (8-26) 12 mg/dL (8-26) 16 mg/dL (8-26) Creatinine 0.8 mg/dL (0.7-1.3) 0.9 mg/dL (0.7-1.3) 0.9 mg/dL (0.7-1.3) Estimated GFR (Cockcroft-Gault) 96.1 83.9 83.9 BUN/Creatinine Ratio 18 (6-20) Glucose Level 141 mg/dL (70-99) 93 mg/dL (70-99) 101 mg/dL (70-99) Hemoglobin A1c 5.5 % (4.8-5.6) Calcium Level 8.7 mg/dL (8.5-10.1) 8.3 mg/dL (8.5-10.1) 7.9 mg/dL (8.5-10.1) Magnesium Level 2.1 mg/dL (1.8-2.4) Total Bilirubin 0.5 mg/dL (0.2-1.0) Aspartate Amino Transf (AST/SGOT) 27 U/L (15-37) Alanine Aminotransferase (ALT/SGPT) 27 U/L (16-63) Alkaline Phosphatase 56 U/L (46-116) Creatine Kinase 151 U/L (39-308) Creatine Kinase MB (Mass) 1.7 ng/mL (0.0-3.6) Creatine Kinase MB Relative Index 1.1 % (0-4) Troponin I Quantitative < 0.017 ng/mL (0.000-0.055) < 0.017 ng/mL (0.000-0.055) < 0.017 ng/mL (0.000-0.055) FK-Lrl-W-Type Natriuretic Peptide 49 pg/mL (0-124) Total Protein 7.7 g/dL (6.4-8.2) Albumin 3.9 g/dL (3.4-5.0) Albumin/Globulin Ratio 1.0 (1.0-1.7) Lipase 136 U/L (73-393) Thyroid Stimulating Hormone (TSH) 4.609 uIU/mL (0.358-3.74) Free Thyroxine 0.89 ng/dL (0.76-1.46) Triglycerides Level 64 mg/dL (0-150) Cholesterol Level 125 mg/dL (0-200) LDL Cholesterol, Calculated 74 mg/dL (0-100) VLDL Cholesterol, Calculated 13 mg/dL (0-40) Non-HDL Cholesterol Calculated 87 mg/dL (0-129) HDL Cholesterol 38 mg/dL (40-60) Cholesterol/HDL Ratio 3.3 Test 08/17/16 03:25 White Blood Count 4.8 x10^3/uL (4.0-11.0) Red Blood Count 4.78 x10^6/uL (4.30-5.70) Hemoglobin 14.9 g/dL (13.0-17.5) Hematocrit 45.0 % (39.0-53.0) Mean Corpuscular Volume 94 fL (79-100) Mean Corpuscular Hemoglobin 31 pg (25-35) Mean Corpuscular Hemoglobin Concent 33 g/dL (31-37) Red Cell Distribution Width 13.6 % (11.5-14.5) Platelet Count 138 x10^3/uL (140-400) Neutrophils (%) (Auto) 58 % (31-73) Lymphocytes (%) (Auto) 27 % (24-48) Monocytes (%) (Auto) 9 % (0-9) Eosinophils (%) (Auto) 4 % (0-3) Basophils (%) (Auto) 2 % (0-3) Neutrophils # (Auto) 2.8 x10^3uL (1.8-7.7) Lymphocytes # (Auto) 1.3 x10^3/uL (1.0-4.8) Monocytes # (Auto) 0.4 x10^3/uL (0.0-1.1) Eosinophils # (Auto) 0.2 x10^3/uL (0.0-0.7) Basophils # (Auto) 0.1 x10^3/uL (0.0-0.2) Laboratory Tests Test 08/17/16 03:15 08/17/16 03:25 Sodium Level 143 mmol/L (136-145) Potassium Level 3.7 mmol/L (3.5-5.1) Chloride Level 106 mmol/L (98-107) Carbon Dioxide Level 30 mmol/L (21-32) Anion Gap 7 (6-14) Blood Urea Nitrogen 16 mg/dL (8-26) Creatinine 0.9 mg/dL (0.7-1.3) Estimated GFR (Cockcroft-Gault) 83.9 Glucose Level 101 mg/dL (70-99) Calcium Level 7.9 mg/dL (8.5-10.1) White Blood Count 4.8 x10^3/uL (4.0-11.0) Red Blood Count 4.78 x10^6/uL (4.30-5.70) Hemoglobin 14.9 g/dL (13.0-17.5) Hematocrit 45.0 % (39.0-53.0) Mean Corpuscular Volume 94 fL (79-100) Mean Corpuscular Hemoglobin 31 pg (25-35) Mean Corpuscular Hemoglobin Concent 33 g/dL (31-37) Red Cell Distribution Width 13.6 % (11.5-14.5) Platelet Count 138 x10^3/uL (140-400) Neutrophils (%) (Auto) 58 % (31-73) Lymphocytes (%) (Auto) 27 % (24-48) Monocytes (%) (Auto) 9 % (0-9) Eosinophils (%) (Auto) 4 % (0-3) Basophils (%) (Auto) 2 % (0-3) Neutrophils # (Auto) 2.8 x10^3uL (1.8-7.7) Lymphocytes # (Auto) 1.3 x10^3/uL (1.0-4.8) Monocytes # (Auto) 0.4 x10^3/uL (0.0-1.1) Eosinophils # (Auto) 0.2 x10^3/uL (0.0-0.7) Basophils # (Auto) 0.1 x10^3/uL (0.0-0.2) Brief Hospital Course Mr. Moore is a 66 old admit for chest pain, ACS ruled out MPI stress test neg, but CT scan showed abd aortic aneurysm 4.7 cm in width, 5.2 cm in greatest AP dimension and 6.3 cm in craniocaudad extent. Dr. Cota consulted, from vascular surgery pt will follow up with Dr. An in 6 mos IMPRESSION: 1. Moderate generalized aortic atherosclerosis with a small plaque ulceration noted in the proximal descending thoracic aorta. 2. Moderate sized aortic aneurysm at the level of the diaphragm. 3. Miscellaneous incidental findings as described above. Discharge Information Condition at Discharge: Improved Follow Up: Weeks Disposition/Orders: D/C to Home Scheduled Amlodipine Besylate (Amlodipine Besylate), 10 MG PO DAILY, (Reported) Cyclobenzaprine Hcl (Cyclobenzaprine Hcl), 1 TAB PO BID, (Reported) Famotidine (Famotidine), 20 MG PO DAILY, (Reported) Metoprolol Tartrate (Metoprolol Tartrate), 1 TAB PO BID, (Reported) Pravastatin Sodium (Pravastatin Sodium), 1 TAB PO QHS, (Reported) Terazosin Hcl (Terazosin Hcl), 2 MG PO HS, (Reported) Scheduled PRN Tramadol Hcl (Tramadol Hcl), 50 MG PO prnq6 PRN for PAIN, (Reported) Patient Instructions Patient Instructions you may return to Dr. Hughes for care, he had seen you many years ago, time > 30 min JONNY JOSEPH MD August 17, 2016 11:28
== END 2016-08-17 14:45 | disposition home or self-care (01) ==
LOC: ER 13:04 → 2 NORTH 14:03
PROVIDERS: ADMIT Internal Medicine; ATTEND Internal Medicine
DX: R07.89 Other chest pain (principal); E03.9 Hypothyroidism, unspecified; E11.9 Type 2 diabetes mellitus without complications; E78.00 Pure hypercholesterolemia, unspecified; E78.5 Hyperlipidemia, unspecified; I10 Essential (primary) hypertension; I70.0 Atherosclerosis of aorta; I71.2 Thoracic aortic aneurysm, without rupture; R11.2 Nausea with vomiting, unspecified; I71.4 Abdominal aortic aneurysm, without rupture; Z86.73 Personal history of transient ischemic attack (TIA), and cerebral infarction without residual deficits; Z87.891 Personal history of nicotine dependence
CPT/HCPCS: 36415; 71010; 71275; 74174; 78452; 80048; 80053; 80061; 82550; 82553; 83036; 83690; 83735; 83880; 84439; 84443; 84484; 85027; 85379; 93005; 93017; 93306; 94250; 96361; 96374; 96375; 96376; 99285; A9500; G0378; J2405; J2785; J3010; J7030; Q9967; G0379

== ENCOUNTER 2017-06-22 07:25 | Emergency (ER) | payer SELFPAY ==
[2017-06-22 07:53] LABS: ADD MAN DIFF? NO
[2017-06-22 07:54] LABS: BASO % 1 % (0-3); EOS # 0.1 x10^3/uL (0.0-0.7); EOS % 1 % (0-3); HEMATOCRIT 49.9 % (39.0-53.0); HEMOGLOBIN 16.8 g/dL (13.0-17.5); LYMPH # 0.9 x10^3/uL (1.0-4.8); LYMPH % 13 % (24-48); MEAN CORPUSCULAR HEMOGLOBIN 31 pg (25-35); MEAN CORPUSCULAR HGB CONC 34 g/dL (31-37); MEAN CORPUSCULAR VOLUME 92 fL (79-100); MONO # 0.6 x10^3/uL (0.0-1.1); MONO % 8 % (0-9); NEUT # 5.9 x10^3uL (1.8-7.7); NEUT % 78 % (31-73); PLATELET COUNT 171 x10^3/uL (140-400); RED BLOOD COUNT 5.45 x10^6/uL (4.30-5.70); RED CELL DISTRIBUTION WIDTH 13.7 % (11.5-14.5); WHITE BLOOD COUNT 7.5 x10^3/uL (4.0-11.0)
[2017-06-22 08:03] LABS: ANION GAP 7 (6-14); BLOOD UREA NITROGEN 12 mg/dL (8-26); BUN/CREATININE RATIO 13 (6-20); CALCIUM 9.1 mg/dL (8.5-10.1); CARBON DIOXIDE 29 mmol/L (21-32); CHLORIDE 104 mmol/L (98-107); CREATININE 0.9 mg/dL (0.7-1.3); GFR 83.7; GLUCOSE 115 mg/dL (70-99); POTASSIUM 3.8 mmol/L (3.5-5.1); SODIUM 140 mmol/L (136-145)
[2017-06-22 08:10] LABS: ALBUMIN 3.7 g/dL (3.4-5.0); ALK PHOS 67 U/L (46-116); ALT (SGPT) 25 U/L (16-63); AST (SGOT) 19 U/L (15-37); TOTAL BILIRUBIN 0.5 mg/dL (0.2-1.0); TOTAL PROTEIN 7.3 g/dL (6.4-8.2)
[2017-06-22 08:12] LABS: TROPONINI < 0.017 ng/mL (0.000-0.055)
[2017-06-22] MEDS: HYDROcodone/APAP 5/325MG 1 TAB TABLET PO (08:14)
== END 2017-06-22 09:39 | disposition home or self-care (01) ==
LOC: ER 09:39
DX: M48.52XA Collapsed vertebra, not elsewhere classified, cervical region, initial encounter for fracture (principal); K21.9 Gastro-esophageal reflux disease without esophagitis; E78.00 Pure hypercholesterolemia, unspecified; I10 Essential (primary) hypertension; Z86.73 Personal history of transient ischemic attack (TIA), and cerebral infarction without residual deficits
CPT/HCPCS: 36415; 70450; 72125; 80053; 84484; 85025; 93005; 99285-25